=== PATIENT | female | born 1960 | race Caucasian/White ===

== ENCOUNTER → 2019-07-02 | Outpatient (CLI) | payer MEDICARE ==
--- NOTE | 2019-07-02 11:31 | US ---
LOWER EXTREMITY VENOUS INSUFFICIENCY CLINICAL HISTORY: L97.222 L89.620 E11.622. Left leg wound. No hx of DVT. SIDE PERFORMED: Bilateral 1) Color flow is present and patency is documented in the following vessels. No DVT or SVT is noted . EIV Common Femoral Vein Deep Femoral Vein Femoral Vein Popliteal Vein Proximal Calf Veins Greater Saph Vein Upper Small Saph Vein - not visualized 2) There is venous reflux noted at the following venous levels: NONE Very limited study due to patient body habitus, patient unable to position legs and patient having a hard time performing valsalva IMPRESSION: 1. No obvious reflux identified during this exam. 2. Exam is limited due to body habitus and inability to perform supplemental maneuvers.
--- NOTE | 2019-07-03 13:26 | P.ARTDOP ---
Arterial Doppler LOWER EXTREMITY ARTERIAL DOPPLER: DATE OF SERVICE: 07/02/2019 Reason for study: Left leg ulcer. Doppler waveforms: Multiphasic bilaterally throughout. Pulse volume recording: Normal configuration. Pressure gradients: None. Ankle-brachial indices: 0.94 on the right and one on the left. Toe brachial indices: 0.7 on the right, 0.84 on the left Impression: Normal study.
== END | disposition home or self-care (01) ==
LOC: RADUSWWP 09:34
PROVIDERS: ATTEND Thoracic Surgery (Cardiothoracic Vascular Surgery)
DX: E11.622 Type 2 diabetes mellitus with other skin ulcer (principal); L97.222 Non-pressure chronic ulcer of left calf with fat layer exposed; L89.620 Pressure ulcer of left heel, unstageable
CPT/HCPCS: 93923; 93970

== ENCOUNTER 2022-12-24 23:10 | Inpatient (IN) | payer MEDICARE ==
--- NOTE | 2022-12-24 23:24 | ED ---
Recheck HPI - General Chief Complaint: Wound/Laceration Stated Complaint: Wound Care Time Seen by Provider: 12/24/22 23:22 Source: EMS, RN notes reviewed, old records reviewed Mode of arrival: EMS Limitations: no limitations - History of Present Illness Initial Comments: This is a 62-year-old female to the emergency department for evaluation. Patient is accepted in transfer patient from [facility]. Patient is accepted transfer transfer for sacral decubitus ulcer, failed treatment and wound care, feeling IV antibiotics outpatient treatment MD Complaint: wound re-check, abnormal lab -: days(s) Returns Today for: Called Because of Abnormal Lab/Test, persistent/worsening pain related to initial visit Symptoms Since Prior Visit: worsening pain Context: planned re-check Treatments Prior to Arrival: Given Antibiotics on, Given Pain Meds on - Related Data Home Medications Medication Instructions Recorded Confirmed Acetaminophen [Tylenol Arthritis] 1,300 mg PO Q8H PRN 12/25/22 12/25/22 Atorvastatin [Lipitor] 20 mg PO DAILY 12/25/22 12/25/22 Cholestyramine (with Sugar) 2 gm PO DAILY 12/25/22 12/25/22 [Questran Powder] Diphenoxylate HCl/Atropine 1 tab PO QID PRN 12/25/22 12/25/22 [Lomotil 2.5-0.025 mg Tablet] Fluticasone Nasal [place] [Flonase 2 spray EA NOSTRIL DAILY PRN 12/25/22 12/25/22 Nasal [place]] Gabapentin [Neurontin] 400 mg PO DAILY 12/25/22 12/25/22 Gabapentin [Neurontin] 800 mg PO HS 12/25/22 12/25/22 Lidocaine 5% Patch [Lidoderm] 1 patch TOPICAL DAILY PRN 12/25/22 12/25/22 Metoprolol Succinate (ER) [Toprol 200 mg PO DAILY 12/25/22 12/25/22 Xl] Mirabegron [Myrbetriq] 50 mg PO DAILY 12/25/22 12/25/22 Nitroglycerin Sl Tabs [Nitrostat] 0.4 mg SUBLINGUAL Q5M PRN 12/25/22 12/25/22 Potassium Chloride ER [K-Dur 20] 20 meq PO DAILY 12/25/22 12/25/22 Warfarin [Coumadin] 5 mg PO DAILY 12/25/22 12/26/22 dilTIAZem HCL [Cardizem CD] 120 mg PO DAILY 12/25/22 12/25/22 glipiZIDE [Glucotrol] 15 mg PO BID 12/25/22 12/25/22 lisinopriL [Zestril] 2.5 mg PO DAILY 12/25/22 12/25/22 sitaGLIPtin [Januvia] 100 mg PO DAILY 12/25/22 12/25/22 Allergies Allergy/AdvReac Type Severity Reaction Status Date / Time codeine Allergy Vomiting Verified 12/25/22 12:05 Penicillins Allergy Rash/Hives Verified 12/25/22 12:05 Review of Systems ROS Statement: Those systems with pertinent positive or pertinent negative responses have been documented in the HPI. ROS Other: All systems not noted in ROS Statement are negative. Past Medical History Past Medical History: Atrial Fibrillation, Diabetes Mellitus, Hyperlipidemia, Hypertension History of Any Multi-Drug Resistant Organisms: None Reported Past Surgical History: Ablation Additional Past Surgical History / Comment(s): colonoscopy, Past Psychological History: Anxiety Smoking Status: Former smoker Past Alcohol Use History: Rare Past Drug Use History: None Reported General Exam General appearance: alert, in no apparent distress Head exam: Present: atraumatic, normocephalic, normal inspection Eye exam: Present: normal appearance, PERRL, EOMI. Absent: scleral icterus, conjunctival injection, periorbital swelling ENT exam: Present: normal exam, mucous membranes moist Neck exam: Present: normal inspection. Absent: tenderness, meningismus, lymphadenopathy Respiratory exam: Present: normal lung sounds bilaterally. Absent: respiratory distress, wheezes, rales, rhonchi, stridor Cardiovascular Exam: Present: regular rate, normal rhythm, normal heart sounds. Absent: systolic murmur, diastolic murmur, rubs, gallop, clicks GI/Abdominal exam: Present: soft, normal bowel sounds. Absent: distended, tenderness, guarding, rebound, rigid Extremities exam: Present: normal inspection, full ROM, normal capillary refill. Absent: tenderness, pedal edema, joint swelling, calf tenderness Back exam: Present: normal inspection Neurological exam: Present: alert, oriented X3, CN II-XII intact Psychiatric exam: Present: normal affect, normal mood Skin exam: Present: warm, dry, intact, normal color. Absent: rash Course Vital Signs 12/24/22 12/25/22 12/25/22 23:14 01:09 EST 01:27 EST Temperature 98.9 F Pulse Rate 116 H 111 H Respiratory 18 18 Rate Blood Pressure 115/62 102/66 O2 Sat by Pulse 96 97 Oximetry - Reevaluation(s) Reevaluation #1: 12/25/22 01:42 EDT Medical records reviewed Reevaluation #2: 12/25/22 01:42 EDT Patient symptoms are unchanged Reevaluation #3: 12/25/22 01:42 EDT Patient informed results questions answered Reevaluation #4: 12/25/22 01:42 EDT Was pt. sent in by a medical professional or institution (, SANDY, RENTAL COUNTER CLERK, urgent care, hospital, or detention...) When possible be specific @ -no Did you speak to anyone other than the patient for history (EMS, parent, family, police, friend...)? What history was obtained from this source @ -no Did you review nursing and triage notes (agree or disagree)? Why? @ -agree Are old charts reviewed (outside hosp., previous admission, EMS record, old EKG, old radiological studies, urgent care reports/EKG's, detention records)? Report findings @ -yes Differential Diagnosis (chest pain, altered mental status, abdominal pain women, abdominal pain men, vaginal bleeding, weakness, fever, dyspnea, syncope, headache, dizziness, GI bleed, back pain, seizure, CVA, palpatations, mental health, musculoskeletal)? @ -prior EKG interpreted by me (3pts min.). @ -no X-rays interpreted by me (1pt min.). @ -no CT interpreted by me (1pt min.). @ -no U/S interpreted by me (1pt. min.). @ -no What testing was considered but not performed or refused? (CT, X-rays, U/S, labs)? Why? @ -none What meds were considered but not given or refused? Why? @ -none Did you discuss the management of the patient with other professionals (professionals i.e. SANDY Gar, RENTAL COUNTER CLERK, lab, RT, psych nurse, health social work professor, credit control officer, teacher, inspectors and regulatory officers, case preparer and liner)? Give summary @ -no Was smoking cessation discussed for >3mins.? @ -no Was critical care preformed (if so, how long)? @ -no Were there social determinants of health that impacted care today? How? (Homelessness, low income, unemployed, alcoholism, drug addiction, transportatio n, low edu. Level, literacy, decrease access to med. care, correction, rehab)? @ -none Was there de-escalation of care discussed even if they declined (Discuss DNR or withdrawal of care, Hospice)? DNR status @ -no What co-morbidities impacted this encounter? (DM, HTN, Smoking, COPD, CAD, Cancer, CVA, ARF, Chemo, Hep., AIDS, mental health diagnosis, sleep apnea, morbid obesity)? @ -none Was patient admitted / discharged? Hospital course, mention meds given and route, prescriptions, significant lab abnormalities, going to OR and other pertinent info. @ - 62 female to the emergency room today for evaluation patient is presenting to the ER with pain back pain, patient is a known sacral decubitus ulcer will be admitted for wound care and IV antibiotics Admitted Undiagnosed new problem with uncertain prognosis? @ -no Drug Therapy requiring intensive monitoring for toxicity (Heparin, Nitro, Insu shaylee, Cardizem)? @ -no Were any procedures done? @ -no Diagnosis/symptom? @ -Sacral decubitus ulcer Acute, or Chronic, or Acute on Chronic? @ -Acute Uncomplicated (without systemic symptoms) or Complicated (systemic symptoms)? @ -Complicated Side effects of treatment? @ -no Exacerbation, Progression, or Severe Exacerbation? @ -exacerbation Poses a threat to life or bodily function? How? (Chest pain, [place], [place], pneumonia, PE, COPD, DKA, ARF, appy, cholecystitis, CVA, Diverticulitis, Homicidal, Suicidal, threat to staff... and all critical care pts) @ -yes significant will with sepsis - Consultations Consultation #1: Spoke with [facility] we'll admit this patient Medical Decision Making - Medical Decision Making 62 female to the emergency room today for evaluation patient is presenting to the ER with pain back pain, patient is a known sacral decubitus ulcer will be admitted for wound care and IV antibiotics - Lab Data Result diagrams: 12/27/22 11:11 12/27/22 11:11 Disposition Clinical Impression: Sacral decubitus ulcer, Weakness, Infection, Cellulitis Disposition: ADMITTED IP TO THIS HOSP Condition: Good Is patient prescribed a controlled substance at d/c from ED?: No Time of Disposition: 01:40
[2022-12-25] MEDS: SODIUM CHLORIDE 0.9% 1,000 ML IV SCH ×2 (01:18→19:32)
[2022-12-25] MEDS ORDERED: NALOXONE 0.4 MG/ML 1 ML VIAL IV PRN (01:39)
[2022-12-25] MEDS ORDERED: VANCOMYCIN IV PER PHARMACY 1 EACH MISC MISCELLANE PRN (02:17)
[2022-12-25] MEDS ORDERED: CEFEPIME 2 GM in SODIUM CHLORIDE 0.9% 100 ML IVPB STA (02:17)
[2022-12-25] MEDS: MORPHINE SULFATE 4 MG/ML SYRINGE IV PRN ×2 (02:18→20:38)
[2022-12-25] MEDS ORDERED: VANCOMYCIN 2,000 MG in SODIUM CHLORIDE 0.9% 500 ML 500 ML IVPB STA (02:19)
[2022-12-25 05:38] LABS: Glucose,Whole Blood 196 mg/dL (70-110)
[2022-12-25] MEDS ORDERED: LIDOCAINE 1% INJ 10MG/ML (20 ML MDV) SQ ONE (09:54)
[2022-12-25] MEDS ORDERED: SILVER NITRATE APPLICATOR 1 EACH STICK..EA. TOPICAL STA (10:05)
--- NOTE | 2022-12-25 10:52 | P.HPIM ---
History of Present Illness 62-year-old the female is admitted for infected decubitus ulcers stage IV 2 words the right thigh and sacrum. The patient is sent in from [facility] is bedbound not much of the information is available from the ER note. No workup was done in ER patient was started on Aricept. And vancomycin and admitted with consultation to vascular surgery I do not have any labs available patient is on Coumadin unsure why patient is on Coumadin unable to get much of the history from the patient. No history is available from ER physician either. Patient is bit hypotensive is on antidepressant medication. Patient did have fever. REVIEW OF SYSTEMS: Unable to obtain PHYSICAL EXAMINATION: GENERAL: The patient is alert , not in any acute distress. Well developed, well nourished. HEENT: Pupils are round and equally reacting to light. EOMI. No scleral icterus. No conjunctival pallor. Normocephalic, atraumatic. No pharyngeal erythema. No thyromegaly. CARDIOVASCULAR: S1 and S2 present. No murmurs, rubs, or gallops. PULMONARY: Chest is clear to auscultation, no wheezing or crackles. ABDOMEN: Soft, nontender, nondistended, normoactive bowel sounds. No palpable organomegaly. MUSCULOSKELETAL: Patient does have or deformity of the spine mostly bedbound hunched over EXTREMITIES: No cyanosis, clubbing, or pedal edema. NEUROLOGICAL: Unable to assess doesn't appear to have any new focal deficits. SKIN: No rashes. Assessment and plan -Infected sacral liquids ulcer patient did have fever may have sepsis CBC, his metabolic profile INR will be obtained patient will continue antibiotics with infectious disease consultation patient is undergoing debridement will get wound cultures. -Tachycardia secondary to sepsis and hypotension secondary to sepsis patient will be started on IV fluids -Atrial fibrillation history patient is in chronic A. fib EKG was not obtained patient will be resumed on beta judson or any other rate control medications if she is on any and EKG will be obtained no workup was done any yard. We will obtain INR -Type 2 diabetes mellitus -Hyperlipidemia -Hypertension DVT prophylaxis: Patient is on Coumadin INR is not available INR was ordered Past Medical History Past Medical History: Atrial Fibrillation, Diabetes Mellitus, Hyperlipidemia, Hypertension History of Any Multi-Drug Resistant Organisms: None Reported Past Surgical History: Ablation Additional Past Surgical History / Comment(s): colonoscopy, Past Anesthesia/Blood Transfusion Reactions: No Reported Reaction Past Psychological History: Anxiety Smoking Status: Former smoker Past Alcohol Use History: Rare Past Drug Use History: None Reported Medications and Allergies Home Medications Medication Instructions Recorded Confirmed Type Gabapentin [Neurontin] 400 mg PO 12/25/22 History Glimepiride 1.5 mg PO BID 12/25/22 12/25/22 History Oxybutynin Chloride [oxyBUTYnin 10 mg PO DAILY 12/25/22 12/25/22 History chloride ER] Tolterodine ER [Detrol LA] 4 mg PO DAILY 12/25/22 12/25/22 History Warfarin [Coumadin] 5 mg PO DAILY 12/25/22 12/25/22 History lisinopriL [Zestril] 2.5 mg PO DAILY 12/25/22 12/25/22 History traMADol HCL 50 mg PO Q6H PRN 12/25/22 12/25/22 History Allergies Allergy/AdvReac Type Severity Reaction Status Date / Time codeine Allergy Vomiting Verified 12/24/22 23:22 Penicillins Allergy Rash/Hives Verified 12/24/22 23:22 Physical Exam Vitals: Vital Signs Temp Pulse Pulse Resp BP BP Pulse Ox 12/25/22 07:04 100.4 F H 66 19 105/57 92 L 12/25/22 01:27 EST 102/66 12/25/22 01:09 EST 111 H 18 97 12/24/22 23:14 98.9 F 116 H 18 115/62 96 Intake and Output 12/24/22 12/25/22 12/25/22 23:59 06:59 14:59 Other: Voiding Method # Voids Weight Results Labs: Abnormal Lab Results - Last 24 Hours (Table) 12/25/22 Range/Units 05:36 POC Glucose (mg/dL) 196 H (70-110) mg/dL Thrombosis Risk Factor Assmnt - Choose All That Apply Any of the Below Risk Factors Present?: Yes Each Factor Represents 1 point: Age 41-60 years, Obesity (BMI >25), Swollen legs (current) Other Risk Factors: Yes Each Risk Factor Represents 2 Points: Patient confined to bed Thrombosis Risk Factor Assessment Total Risk Factor Score: 5 Thrombosis Risk Factor Assessment Level: High Risk
[2022-12-25 11:16] LABS: Basophils % (A) 0 %; Eosinophils # (A) 0.2 k/uL (0-0.7); Eosinophils % (A) 2 %; HCT 34.9 % (34.0-46.0); HGB 11.5 gm/dL (11.4-16.0); Lymphocytes # (A) 1.3 k/uL (1.0-4.8); Lymphocytes % (A) 13 %; MCH 31.7 pg (25.0-35.0); MCV 95.9 fL (80.0-100.0); Mean Platelet Volume 7.6; Monocytes # (A) 0.7 k/uL (0-1.0); Monocytes % (A) 7 %; Neutrophils # (A) 7.8 k/uL (1.3-7.7); Neutrophils % (A) 77 %; Platelet Count 346 k/uL (150-450); RBC 3.64 m/uL (3.80-5.40); RDW 12.6 % (11.5-15.5); WBC 10.1 k/uL (3.8-10.6)
[2022-12-25 11:34] LABS: INR 3.7 (<1.2)
[2022-12-25 11:36] LABS: Glucose,Whole Blood 184 mg/dL (70-110)
[2022-12-25] MEDS: INSULIN ASPART (NovoLOG) 100 UNIT/ML VIAL SQ SCH ×3 (12:41→20:38)
[2022-12-25] MEDS: CEFEPIME 2 GM in SODIUM CHLORIDE 0.9% 100 ML IVPB SCH ×2 (12:41→23:33)
[2022-12-25] MEDS: VANCOMYCIN 2,000 MG in SODIUM CHLORIDE 0.9% 500 ML 500 ML IVPB SCH ×2 (12:48→23:33)
[2022-12-25] MEDS ORDERED: NITROGLYCERIN SL TABS 0.4 MG TAB SUBLINGUAL PRN (13:54)
--- NOTE | 2022-12-25 14:01 | PCN ---
PROCEDURE NOTE PREOPERATIVE DIAGNOSIS: Sacral wound, measurement is 3 x 2 x 0.5 cm. POSTOPERATIVE DIAGNOSIS: Sacral wound, measurement is 3 x 2 x 1 cm. DESCRIPTION OF PROCEDURE: The patient was seen. The patient was kept in lateral position, prepped, and drapes were applied in sterile manner. 1% lidocaine infiltrated. This patient had a deep fertilized tissue noted. Using a knife, we excised the wound down to subcutaneous tissue and fat and the devitalized tissue was removed. The deep tissue was sent for deep culture. There was some foul order noted. The bleeding was controlled using nitroglycerin stick and then wound was irrigated with saline. MediHoney gel applied to the wound. Pressure dressing was applied. The patient tolerated the procedure well. Plan is to change the dressing every other day using MediHoney gel. MMODL / IJN: [id number] /
[2022-12-25] MEDS: METOPROLOL SUCCINATE (ER) 100 MG TAB.ER.24H PO SCH (14:18)
[2022-12-25] MEDS: DILTIAZEM CD 120 MG CAP.ER.24H PO SCH (14:18)
[2022-12-25] MEDS: LINAGLIPTIN 5 MG TABLET PO SCH (14:18)
[2022-12-25 16:34] LABS: Glucose,Whole Blood 141 mg/dL (70-110)
[2022-12-25 16:58] LABS: Glucose,Whole Blood 140 mg/dL (70-110)
[2022-12-25 20:21] LABS: Glucose,Whole Blood 209 mg/dL (70-110)
[2022-12-25] MEDS: GABAPENTIN 400 MG CAP PO SCH (20:38)
--- NOTE | 2022-12-25 21:07 | P.CONS ---
History of Present Illness - Reason for Consult Consult date: 12/25/22 Infected decubitus ulcer Requesting physician: Alma Ramires - Chief Complaint Worsening wound to the sacral area x days - History of Present Illness Patient is a 62-year-old female with a past medical history significant for diabetes mellitus hypertension hyperlipidemia atrial fibrillation patient apparently has been sent to the ER for evaluation of worsen ing wound to the sacral area the patient has for couple of weeks now patient has significant medical history so most information has been from with the chart and from nursing's staff patient presented to the hospital was afebrile however she did have fever 100.4 F this morning mildly hypertensive and hypoxic but no need for supplemental oxygen patient did have white count of 10.1 patient apparently initially was sent to the [facility] after apparently the patient did have a fall from a recliner patient apparently was complaining of some lower back pain and the patient seem to have been confused for the last couple of days as per the daughter who provide the history to the decoratively physician apparently the patient is a bedbound patient did have a sacral pressure ulcer for the patient did have a home care nurse for visit twice a week and apparently the patient has not been letting her take care of her wound there was some foul- smelling noticed patient has been eval by vascular surgery and did have debridement of the wound done deep culture has been obtained patient was started on vancomycin and cefepime infectious disease was consulted for further management of antibiotic therapy Review of Systems Positive point and negatives has been mentioned in the HPI, complete review of systems was performed and all other systems are negative Past Medical History Past Medical History: Atrial Fibrillation, Diabetes Mellitus, Hyperlipidemia, Hypertension History of Any Multi-Drug Resistant Organisms: None Reported Past Surgical History: Ablation Additional Past Surgical History / Comment(s): colonoscopy, Past Anesthesia/Blood Transfusion Reactions: No Reported Reaction Past Psychological History: Anxiety Smoking Status: Former smoker Past Alcohol Use History: Rare Past Drug Use History: None Reported Medications and Allergies Home Medications Medication Instructions Recorded Confirmed Type Acetaminophen [Tylenol Arthritis] 1,300 mg PO Q8H PRN 12/25/22 12/25/22 History Atorvastatin [Lipitor] 20 mg PO DAILY 12/25/22 12/25/22 History Diphenoxylate HCl/Atropine 1 tab PO QID PRN 12/25/22 12/25/22 History [Lomotil 2.5-0.025 mg Tablet] Fluticasone Nasal [place] [Flonase 2 spray EA NOSTRIL DAILY PRN 12/25/22 12/25/22 History Nasal [place]] Gabapentin [Neurontin] 400 mg PO DAILY 12/25/22 12/25/22 History Lidocaine 5% Patch [Lidoderm 5% 1 patch TOPICAL DAILY PRN 12/25/22 12/25/22 History Patch] Metoprolol Succinate (ER) [Toprol 200 mg PO DAILY 12/25/22 12/25/22 History XL] Mirabegron [Myrbetriq] 50 mg PO DAILY 12/25/22 12/25/22 History Nitroglycerin Sl Tabs [Nitrostat] 0.4 mg SUBLINGUAL Q5M PRN 12/25/22 12/25/22 History Warfarin [Coumadin] 5 mg PO DAILY 12/25/22 12/26/22 History dilTIAZem HCL [Cardizem CD] 120 mg PO DAILY 12/25/22 12/25/22 History glipiZIDE [Glucotrol] 15 mg PO BID 12/25/22 12/25/22 History sitaGLIPtin [Januvia] 100 mg PO DAILY 12/25/22 12/25/22 History Cefepime [Maxipime] 2 gm IVPB Q8HR 21 Days #63 each 01/02/23 Rx Gabapentin [Neurontin] 800 mg PO HS #4 cap 01/02/23 Rx HYDROcodone/APAP 5-325MG [[place] 1 each PO Q6HR PRN #4 tab 01/02/23 Rx 5-325] INSULIN ASPART (NovoLOG) [NovoLOG 0 unit SQ ACHS each 01/02/23 Rx (formulary)] Nystatin 100,000 Unit/gm Oint 1 applic TOPICAL BID each 01/02/23 Rx [Mycostatin Oint] Oxybutynin ER [Ditropan XL] 10 mg PO DAILY tab 01/02/23 Rx Pantoprazole [Protonix] 40 mg PO AC-BRKFST tab 01/02/23 Rx Triamcinolone 0.1% Ointment 1 applic TOPICAL BID each 01/02/23 Rx [Kenalog 0.1% Ointment] Vancomycin 2,250 mg IVPB Q12H 21 Days #42 each 01/02/23 Rx metroNIDAZOLE [Flagyl] 500 mg PO TID 21 Days #63 tab 01/02/23 Rx traMADol HCl [Ultram] 50 mg PO Q6H PRN #4 tab 01/02/23 Rx Allergies Allergy/AdvReac Type Severity Reaction Status Date / Time codeine Allergy Vomiting Verified 12/25/22 12:05 Penicillins Allergy Rash/Hives Verified 12/25/22 12:05 Physical Exam Vitals: Vital Signs Temp Pulse Pulse Resp BP BP Pulse Ox 12/25/22 07:04 100.4 F H 66 19 105/57 92 L 12/25/22 01:27 EST 102/66 12/25/22 01:09 EST 111 H 18 97 12/24/22 23:14 98.9 F 116 H 18 115/62 96 Intake and Output 12/24/22 12/25/22 12/25/22 23:59 06:59 14:59 Other: Voiding Method # Voids Weight GENERAL DESCRIPTION: Middle-aged female lying in bed, no distress. No tachypnea or accessory muscle of respiration use. HEENT: Shows Pallor , no scleral icterus. Oral mucous membrane is dry. No pharyngeal erythema or thrush NECK: Trachea central, no thyromegaly. LUNGS: Unlabored breathing. Clear to auscultation anteriorly. No wheeze or crackle. HEART: S1, S2, regular rate and rhythm. No loud murmur ABDOMEN: Soft, no tenderness , guarding or rigidity, no organomegaly EXTREMITIES: No edema of feet. SKIN: No rash, no masses palpable. Patient did have an unstageable sacral pressure ulcer with slough tissue and some drainage NEUROLOGICAL: The patient is awake, alert, oriented x3, mood and affect normal. Results CBC & Chem 7: 01/02/23 06:26 01/02/23 06:26 Labs: Abnormal Lab Results - Last 24 Hours (Table) 12/25/22 12/25/22 12/25/22 Range/Units 05:36 10:46 10:58 RBC 3.64 L (3.80-5.40) m/uL Neutrophils # 7.8 H (1.3-7.7) k/uL PT 36.0 H (10.0-12.5) sec INR 3.7 H (<1.2) POC Glucose (mg/dL) 196 H (70-110) mg/dL 12/25/22 Range/Units 11:34 RBC (3.80-5.40) m/uL Neutrophils # (1.3-7.7) k/uL PT (10.0-12.5) sec INR (<1.2) POC Glucose (mg/dL) 184 H (70-110) mg/dL Assessment and Plan (1) Cellulitis Current Visit: Yes Status: Acute Code(s): L03.90 - CELLULITIS, UNSPECIFIED SNOMED Code(s): 535277441 (2) Sacral decubitus ulcer Current Visit: Yes Status: Acute Code(s): L89.159 - PRESSURE ULCER OF SACRAL REGION, UNSPECIFIED STAGE SNOMED Code(s): 329391185 Plan: 1patient presented to hospital with a worsening wound to the sacral area and this patient who is status post surgical debridement and deep cultures which are currently pending bone was not palpable at the wound base, we will need to cover for gram-positive as well as gram-negative pathogen 2-penicillin allergy that will limit the number of antibiotics safe to use 3-patient to continue with vancomycin pharmacy to dose while watching kidney function closely and cefepime while waiting for the culture to finalize 4-local wound care per the wound care physician We will follow on clinical condition and cultures to further adjust medication if needed Thank you for this consultation we will follow the patient along with you Dictation was produced using [employer] dictation software. please excuse any grammatical, word or spelling errors. Time with Patient: Greater than 30
[2022-12-26] MEDS: SODIUM CHLORIDE 0.9% 1,000 ML IV SCH ×2 (04:30→19:00)
[2022-12-26 06:32] LABS: Glucose,Whole Blood 172 mg/dL (70-110)
[2022-12-26] MEDS: INSULIN ASPART (NovoLOG) 100 UNIT/ML VIAL SQ SCH ×4 (06:34→20:39)
[2022-12-26] MEDS: ATORVASTATIN 20 MG TAB PO SCH (08:24)
[2022-12-26] MEDS: DILTIAZEM CD 120 MG CAP.ER.24H PO SCH (08:24)
[2022-12-26] MEDS: OXYBUTYNIN 10 MG TAB.ER.24 PO SCH (08:24)
[2022-12-26] MEDS: LINAGLIPTIN 5 MG TABLET PO SCH (08:24)
[2022-12-26] MEDS: METOPROLOL SUCCINATE (ER) 100 MG TAB.ER.24H PO SCH (08:24)
[2022-12-26] MEDS: NON FORMULARY DRUG (Mirabegron [Myrbetriq] 50 MG Tab.Er.24h) PO SCH (08:25)
[2022-12-26 08:56] LABS: Basophils # (A) 0.1 k/uL (0-0.2); Basophils % (A) 1 %; Eosinophils # (A) 0.2 k/uL (0-0.7); Eosinophils % (A) 2 %; HCT 38.5 % (34.0-46.0); HGB 12.1 gm/dL (11.4-16.0); Hypochromasia Slight; Lymphocytes # (A) 1.2 k/uL (1.0-4.8); Lymphocytes % (A) 11 %; MCH 30.8 pg (25.0-35.0); MCHC 31.5 g/dL (31.0-37.0); MCV 97.9 fL (80.0-100.0); Mean Platelet Volume 7.3; Monocytes # (A) 0.9 k/uL (0-1.0); Monocytes % (A) 8 %; Neutrophils # (A) 8.9 k/uL (1.3-7.7); Neutrophils % (A) 77 %; Platelet Count 331 k/uL (150-450); RBC 3.93 m/uL (3.80-5.40); RDW 12.4 % (11.5-15.5); WBC 11.5 k/uL (3.8-10.6)
[2022-12-26 09:18] LABS: ALT 81 U/L (4-34); AST 137 U/L (14-36); African American GFR (CKD) >90 (>60 ml/min/1.73 sqM); Albumin 2.8 g/dL (3.5-5.0); Alkaline Phosphatase 115 U/L (38-126); Anion Gap 9 mmol/L; Blood Urea Nitrogen 16 mg/dL (7-17); Calcium 8.4 mg/dL (8.4-10.2); Carbon Dioxide 23 mmol/L (22-30); Chloride 105 mmol/L (98-107); Glucose 167 mg/dL (74-99); Magnesium 1.9 mg/dL (1.6-2.3); Non-African American GFR(CKD) >90 (>60 ml/min/1.73 sqM); Phosphorus 3.2 mg/dL (2.5-4.5); Potassium 4.4 mmol/L (3.5-5.1); Sodium 137 mmol/L (137-145); Total Bilirubin 0.9 mg/dL (0.2-1.3)
[2022-12-26 12:11] LABS: Glucose,Whole Blood 230 mg/dL (70-110)
--- NOTE | 2022-12-26 12:52 | P.GSCN ---
History of Present Illness History of present illness: 62-year-old white female I was consulted for debridement of the sacral wound. Patient is confused patient has a history of atrial fibrillation, diabetes mellitus, hypertension, patient has a sacral wound 3 x 2 x 1 cm with diverting less tissue on examination patient was seen in her room she is kind of confused history was obtained from the previous records Chest has a crackles bilateral Abdomen is soft nontender femorals are deep 1+ patient has a sacral wound on the measurement is 3 x 2 x 1 cm with some direct tissue Arrange for debridement and deep culture Past Medical History Past Medical History: Atrial Fibrillation, Diabetes Mellitus, Hyperlipidemia, Hypertension History of Any Multi-Drug Resistant Organisms: None Reported Past Surgical History: Ablation Additional Past Surgical History / Comment(s): colonoscopy, Past Anesthesia/Blood Transfusion Reactions: No Reported Reaction Past Psychological History: Anxiety Smoking Status: Former smoker Past Alcohol Use History: Rare Past Drug Use History: None Reported Medications and Allergies Home Medications Medication Instructions Recorded Confirmed Type Acetaminophen [Tylenol Arthritis] 1,300 mg PO Q8H PRN 12/25/22 12/25/22 History Atorvastatin [Lipitor] 20 mg PO DAILY 12/25/22 12/25/22 History Cholestyramine (with Sugar) 2 gm PO DAILY 12/25/22 12/25/22 History [Questran Powder] Diphenoxylate HCl/Atropine 1 tab PO QID PRN 12/25/22 12/25/22 History [Lomotil 2.5-0.025 mg Tablet] Fluticasone Nasal Page [Flonase 2 spray EA NOSTRIL DAILY PRN 12/25/22 12/25/22 History Nasal Page] Gabapentin [Neurontin] 400 mg PO DAILY 12/25/22 12/25/22 History Gabapentin [Neurontin] 800 mg PO HS 12/25/22 12/25/22 History Lidocaine 5% Patch [Lidoderm] 1 patch TOPICAL DAILY PRN 12/25/22 12/25/22 History Metoprolol Succinate (ER) [Toprol 200 mg PO DAILY 12/25/22 12/25/22 History Xl] Mirabegron [Myrbetriq] 50 mg PO DAILY 12/25/22 12/25/22 History Nitroglycerin Sl Tabs [Nitrostat] 0.4 mg SUBLINGUAL Q5M PRN 12/25/22 12/25/22 History Potassium Chloride ER [K-Dur 20] 20 meq PO DAILY 12/25/22 12/25/22 History Warfarin [Coumadin] 5 mg PO DAILY 12/25/22 12/26/22 History dilTIAZem HCL [Cardizem CD] 120 mg PO DAILY 12/25/22 12/25/22 History glipiZIDE [Glucotrol] 15 mg PO BID 12/25/22 12/25/22 History lisinopriL [Zestril] 2.5 mg PO DAILY 12/25/22 12/25/22 History sitaGLIPtin [Januvia] 100 mg PO DAILY 12/25/22 12/25/22 History Allergies Allergy/AdvReac Type Severity Reaction Status Date / Time codeine Allergy Vomiting Verified 12/25/22 12:05 Penicillins Allergy Rash/Hives Verified 12/25/22 12:05 Surgical - Exam Vital Signs Temp Pulse Resp BP Pulse Ox 98.9 F 116 H 18 115/62 96 12/24/22 23:14 12/24/22 23:14 12/24/22 23:14 12/24/22 23:14 12/24/22 23:14 Results - Labs 12/26/22 08:26 12/26/22 08:26 Abnormal Lab Results - Last 24 Hours (Table) 12/25/22 12/25/22 12/25/22 Range/Units 16:33 16:56 20:19 WBC (3.8-10.6) k/uL Neutrophils # (1.3-7.7) k/uL Creatinine (0.52-1.04) mg/dL Glucose (74-99) mg/dL POC Glucose (mg/dL) 141 H 140 H 209 H (70-110) mg/dL AST (14-36) U/L ALT (4-34) U/L Total Protein (6.3-8.2) g/dL Albumin (3.5-5.0) g/dL 12/26/22 12/26/22 12/26/22 Range/Units 06:31 08:26 08:26 WBC 11.5 H (3.8-10.6) k/uL Neutrophils # 8.9 H (1.3-7.7) k/uL Creatinine 0.42 L (0.52-1.04) mg/dL Glucose 167 H (74-99) mg/dL POC Glucose (mg/dL) 172 H (70-110) mg/dL AST 137 H (14-36) U/L ALT 81 H (4-34) U/L Total Protein 6.0 L (6.3-8.2) g/dL Albumin 2.8 L (3.5-5.0) g/dL 12/26/22 Range/Units 12:09 WBC (3.8-10.6) k/uL Neutrophils # (1.3-7.7) k/uL Creatinine (0.52-1.04) mg/dL Glucose (74-99) mg/dL POC Glucose (mg/dL) 230 H (70-110) mg/dL AST (14-36) U/L ALT (4-34) U/L Total Protein (6.3-8.2) g/dL Albumin (3.5-5.0) g/dL Microbiology - Last 24 Hours (Table) 12/25/22 11:00 Gram Stain - Preliminary Coccyx Diabetes panel 12/26/22 Range/Units 08:26 Sodium 137 (137-145) mmol/L Potassium 4.4 (3.5-5.1) mmol/L Chloride 105 (98-107) mmol/L Carbon Dioxide 23 (22-30) mmol/L BUN 16 (7-17) mg/dL Creatinine 0.42 L (0.52-1.04) mg/dL Glucose 167 H (74-99) mg/dL Calcium 8.4 (8.4-10.2) mg/dL AST 137 H (14-36) U/L ALT 81 H (4-34) U/L Alkaline Phosphatase 115 (38-126) U/L Total Protein 6.0 L (6.3-8.2) g/dL Albumin 2.8 L (3.5-5.0) g/dL Calcium panel 12/26/22 Range/Units 08:26 Calcium 8.4 (8.4-10.2) mg/dL Phosphorus 3.2 (2.5-4.5) mg/dL Albumin 2.8 L (3.5-5.0) g/dL Pituitary panel 12/26/22 Range/Units 08:26 Sodium 137 (137-145) mmol/L Potassium 4.4 (3.5-5.1) mmol/L Chloride 105 (98-107) mmol/L Carbon Dioxide 23 (22-30) mmol/L BUN 16 (7-17) mg/dL Creatinine 0.42 L (0.52-1.04) mg/dL Glucose 167 H (74-99) mg/dL Calcium 8.4 (8.4-10.2) mg/dL Adrenal panel 12/26/22 Range/Units 08:26 Sodium 137 (137-145) mmol/L Potassium 4.4 (3.5-5.1) mmol/L Chloride 105 (98-107) mmol/L Carbon Dioxide 23 (22-30) mmol/L BUN 16 (7-17) mg/dL Creatinine 0.42 L (0.52-1.04) mg/dL Glucose 167 H (74-99) mg/dL Calcium 8.4 (8.4-10.2) mg/dL Total Bilirubin 0.9 (0.2-1.3) mg/dL AST 137 H (14-36) U/L ALT 81 H (4-34) U/L Alkaline Phosphatase 115 (38-126) U/L Total Protein 6.0 L (6.3-8.2) g/dL Albumin 2.8 L (3.5-5.0) g/dL
[2022-12-26] MEDS: CEFEPIME 2 GM in SODIUM CHLORIDE 0.9% 100 ML IVPB SCH ×2 (13:00→23:50)
[2022-12-26] MEDS: traMADol 50 MG TAB PO PRN ×2 (13:22→20:40)
[2022-12-26] MEDS: VANCOMYCIN 2,000 MG in SODIUM CHLORIDE 0.9% 500 ML 500 ML IVPB SCH ×2 (13:23→23:50)
[2022-12-26] MEDS: FLUTICASONE 50MCG/SPRAY NASAL 16GM EA NOSTRIL PRN (13:24)
[2022-12-26 16:03] VITALS: BMI 46.5
[2022-12-26 16:41] LABS: Glucose,Whole Blood 196 mg/dL (70-110)
--- NOTE | 2022-12-26 17:18 | P.PN ---
Subjective Progress Note Date: 12/26/22 62-year-old the female is admitted for infected decubitus ulcers stage IV 2 words the right thigh and sacrum. The patient is sent in from [facility] is bedbound not much of the information is available from the ER note. No workup was done in ER patient was started on Aricept. And vancomycin and admitted with consultation to vascular surgery I do not have any labs available patient is on Coumadin unsure why patient is on Coumadin unable to get much of the history from the patient. No history is available from ER physician either. Patient is bit hypotensive is on antidepressant medication. Patient did have fever. 12/26/2022 Patient evaluated today with family at the bedside. Family states they have not been to visit her since due to life constraints having children etc. Patient has been home alone and caring for herself. States she is unable to make it to the bathroom most of time time. Patient is continued on antibiotics for the decubitus ulceration and cultures are showing Group D enterococcus. Complaining of excoriation in her groin and abdominal folds. AST/ALT elevated. Review of Systems Constitutional: Denied any fatigue denied any fever. Cardio vascular: denied any chest pain, palpitations Gastrointestinal: denied any nausea, vomiting, diarrhea Pulmonary: Denied any shortness of breath cough Neurologic denied any new focal deficits All inpatient medications were reviewed and appropriate changes in these medications as dictated in the interval history and assessment and plan. PHYSICAL EXAMINATION: GENERAL: The patient is alert , not in any acute distress. Well developed, well nourished. HEENT: Pupils are round and equally reacting to light. EOMI. No scleral icterus. No conjunctival pallor. Normocephalic, atraumatic. No pharyngeal erythema. No thyromegaly. CARDIOVASCULAR: S1 and S2 present. No murmurs, rubs, or gallops. PULMONARY: Chest is clear to auscultation, no wheezing or crackles. ABDOMEN: Soft, nontender, nondistended, normoactive bowel sounds. No palpable organomegaly. MUSCULOSKELETAL: Patient does have or deformity of the spine mostly bedbound hunched over EXTREMITIES: No cyanosis, clubbing, or pedal edema. NEUROLOGICAL: Unable to assess doesn't appear to have any new focal deficits. SKIN: No rashes. Sacral ulceration, chronic skin changes bilateral lower extremity. Assessment and plan -Infected sacral decubitus ulcer patient did have fever may have sepsis, status post sugical debridement of wound continues on IV Cefepime and IV vancomycin with ID and vascular consultation. -Intertrigo in the groin folds mycostatin cream ordered -Tachycardia secondary to sepsis and hypotension secondary to sepsis, improving with IV fluids. -Atrial fibrillation history patient is in chronic A. fib anticoaguated with warfarin. -Type 2 diabetes mellitus -Hyperlipidemia -Hypertension -Anxiety -Former Smoker DVT prophylaxis: Patient is on Coumadin resumed post debridement GI prophylaxis: protonix Full Code Plan PT.OT consultation and social work. APS referral has been placed. Continue on antibiotics pending final cultures from debridement. The impression and plan of care has been dictated by Karrie Shaikh, Nurse Practitioner as directed. Dr. Keyla MD I have performed a history and physical examination and medical decision making of this patient, discussed the same with the dictator, and agree with the dic tators assessment and plan as written, documented as a scribe. Based on total visit time, I have performed more than 50% of this visit. Objective - Vital Signs Vital signs: Vital Signs Temp 98.8 F 12/26/22 13:00 Pulse 91 12/26/22 13:00 Resp 16 12/26/22 13:00 BP 95/59 12/26/22 13:00 Pulse Ox 92 L 12/26/22 13:00 FiO2 Intake & Output 12/25/22 12/26/22 12/26/22 18:59 06:59 18:59 Output Total 1050 Balance -1050 Weight 127.006 kg Output: Urine 1050 Other: Voiding Method Indwelling Catheter Indwelling Catheter Indwelling Catheter - Labs CBC & Chem 7: 12/26/22 08:26 12/26/22 08:26 Labs: Abnormal Lab Results - Last 24 Hours (Table) 12/25/22 12/25/22 12/26/22 Range/Units 16:56 20:19 06:31 WBC (3.8-10.6) k/uL Neutrophils # (1.3-7.7) k/uL Creatinine (0.52-1.04) mg/dL Glucose (74-99) mg/dL POC Glucose (mg/dL) 140 H 209 H 172 H (70-110) mg/dL AST (14-36) U/L ALT (4-34) U/L Total Protein (6.3-8.2) g/dL Albumin (3.5-5.0) g/dL 12/26/22 12/26/22 12/26/22 Range/Units 08:26 08:26 12:09 WBC 11.5 H (3.8-10.6) k/uL Neutrophils # 8.9 H (1.3-7.7) k/uL Creatinine 0.42 L (0.52-1.04) mg/dL Glucose 167 H (74-99) mg/dL POC Glucose (mg/dL) 230 H (70-110) mg/dL AST 137 H (14-36) U/L ALT 81 H (4-34) U/L Total Protein 6.0 L (6.3-8.2) g/dL Albumin 2.8 L (3.5-5.0) g/dL 12/26/22 Range/Units 16:39 WBC (3.8-10.6) k/uL Neutrophils # (1.3-7.7) k/uL Creatinine (0.52-1.04) mg/dL Glucose (74-99) mg/dL POC Glucose (mg/dL) 196 H (70-110) mg/dL AST (14-36) U/L ALT (4-34) U/L Total Protein (6.3-8.2) g/dL Albumin (3.5-5.0) g/dL Microbiology - Last 24 Hours (Table) 12/25/22 11:00 Gram Stain - Preliminary Coccyx Tissue Culture - Preliminary Group D Enterococcus Assessment and Plan Time with Patient: Less than 30
[2022-12-26] MEDS ORDERED: WARFARIN 0.5 MG TAB PO ONE (18:00)
[2022-12-26 20:18] LABS: Glucose,Whole Blood 200 mg/dL (70-110)
[2022-12-26] MEDS: GABAPENTIN 400 MG CAP PO SCH (20:42)
[2022-12-26] MEDS: NYSTATIN 100,000 UNIT/GM OINT 30 GM TUBE TOPICAL SCH (20:49)
[2022-12-26] MEDS: TRIAMCINOLONE ACET 0.1% OINTMENT 15 GM TUBE TOPICAL SCH (20:49)
[2022-12-26] MEDS ORDERED: NYSTAT-TRIAMCIN 100,000-0.1 UNIT/GM-% OINT 30 GM TUBE TOPICAL SCH (21:00)
[2022-12-27 06:14] LABS: Glucose,Whole Blood 124 mg/dL (70-110)
[2022-12-27] MEDS: INSULIN ASPART (NovoLOG) 100 UNIT/ML VIAL SQ SCH ×4 (06:19→21:07)
[2022-12-27] MEDS: PANTOPRAZOLE 40 MG TABLET PO SCH (06:33)
[2022-12-27] MEDS: SODIUM CHLORIDE 0.9% 1,000 ML IV SCH (06:34)
[2022-12-27] MEDS: traMADol 50 MG TAB PO PRN ×3 (06:40→23:19)
[2022-12-27] MEDS: METOPROLOL SUCCINATE (ER) 100 MG TAB.ER.24H PO SCH (08:53)
[2022-12-27] MEDS: ATORVASTATIN 20 MG TAB PO SCH (08:53)
[2022-12-27] MEDS: DILTIAZEM CD 120 MG CAP.ER.24H PO SCH (08:53)
[2022-12-27] MEDS: LINAGLIPTIN 5 MG TABLET PO SCH (08:54)
[2022-12-27] MEDS: OXYBUTYNIN 10 MG TAB.ER.24 PO SCH (08:54)
[2022-12-27] MEDS: NON FORMULARY DRUG (Mirabegron [Myrbetriq] 50 MG Tab.Er.24h) PO SCH (09:30)
[2022-12-27 10:19] LABS: Prothrombin Time 20.2 sec (10.0-12.5)
--- NOTE | 2022-12-27 10:29 | P.PN ---
Subjective Progress Note Date: 12/26/22 Principal diagnosis: Infected sacral pressure ulcer Patient is a 62-year-old female with a past medical history significant for diabetes mellitus hypertension hyperlipidemia atrial fibrillation patient apparently has been sent to the ER for evaluation of worsening wound to the sacral area, patient did have a low-grade fever 100.4 and did have debridement of the wound by surgery and cultures are pending. On today's evaluation that is 12/26/2022, the patient did have a low-grade fever 100.2F this morning, the patient is breathing comfortably on room air , the patient denies any chest pain or cough and no sputum production, patient denies nausea/vomiting or diarrhea , no abdominal pain, denies any worsening pain to the sacral area. White count is 11.5, creatinine 0.42, cultures are currently pending Objective - Vital Signs Vital signs: Vital Signs Temp 100.2 F H 12/26/22 08:20 Pulse 95 12/26/22 08:20 Resp 18 12/26/22 08:20 BP 99/63 12/26/22 08:20 Pulse Ox 93 L 12/26/22 08:20 FiO2 Intake & Output 12/25/22 12/26/22 12/26/22 18:59 06:59 18:59 Output Total 1050 Balance -1050 Output: Urine 1050 Other: Voiding Method Indwelling Catheter Indwelling Catheter - Exam GENERAL DESCRIPTION: A middle-aged female lying in bed in no distress RESPIRATORY SYSTEM: Unlabored breathing , clear to auscultation anteriorly HEART: S1 S2 regular rate and rhythm , ABDOMEN: Soft , no tenderness EXTREMITIES: No edema feet - Labs CBC & Chem 7: 12/26/22 08:26 12/26/22 08:26 Labs: Abnormal Lab Results - Last 24 Hours (Table) 12/25/22 12/25/22 12/25/22 Range/Units 10:46 10:58 11:34 WBC (3.8-10.6) k/uL RBC 3.64 L (3.80-5.40) m/uL Neutrophils # 7.8 H (1.3-7.7) k/uL PT 36.0 H (10.0-12.5) sec INR 3.7 H (<1.2) Creatinine (0.52-1.04) mg/dL Glucose (74-99) mg/dL POC Glucose (mg/dL) 184 H (70-110) mg/dL AST (14-36) U/L ALT (4-34) U/L Total Protein (6.3-8.2) g/dL Albumin (3.5-5.0) g/dL 12/25/22 12/25/22 12/25/22 Range/Units 16:33 16:56 20:19 WBC (3.8-10.6) k/uL RBC (3.80-5.40) m/uL Neutrophils # (1.3-7.7) k/uL PT (10.0-12.5) sec INR (<1.2) Creatinine (0.52-1.04) mg/dL Glucose (74-99) mg/dL POC Glucose (mg/dL) 141 H 140 H 209 H (70-110) mg/dL AST (14-36) U/L ALT (4-34) U/L Total Protein (6.3-8.2) g/dL Albumin (3.5-5.0) g/dL 12/26/22 12/26/22 12/26/22 Range/Units 06:31 08:26 08:26 WBC 11.5 H (3.8-10.6) k/uL RBC (3.80-5.40) m/uL Neutrophils # 8.9 H (1.3-7.7) k/uL PT (10.0-12.5) sec INR (<1.2) Creatinine 0.42 L (0.52-1.04) mg/dL Glucose 167 H (74-99) mg/dL POC Glucose (mg/dL) 172 H (70-110) mg/dL AST 137 H (14-36) U/L ALT 81 H (4-34) U/L Total Protein 6.0 L (6.3-8.2) g/dL Albumin 2.8 L (3.5-5.0) g/dL Microbiology - Last 24 Hours (Table) 12/25/22 11:00 Gram Stain - Preliminary Coccyx Assessment and Plan (1) Infection Current Visit: Yes Status: Acute Code(s): B99.9 - UNSPECIFIED INFECTIOUS DISEASE SNOMED Code(s): 75569665 (2) Sacral decubitus ulcer Current Visit: Yes Status: Acute Code(s): L89.159 - PRESSURE ULCER OF SACRAL REGION, UNSPECIFIED STAGE SNOMED Code(s): 404001304 Plan: 1patient presented to hospital with a worsening wound to the sacral area and this patient who is status post surgical debridement and deep cultures which are currently pending bone was not palpable at the wound base, we will need to cover for gram-positive as well as gram-negative pathogen 2-penicillin allergy that will limit the number of antibiotics safe to use 3-patient to continue with vancomycin pharmacy to dose while watching kidney function closely and cefepime while waiting for the culture to finalize and monitor clinical course closely Dictation was produced using J[employer] dictation software. please excuse any g rammatical, word or spelling errors. Time with Patient: Less than 30
[2022-12-27] MEDS ORDERED: VANCOMYCIN TROUGH DUE 1 EACH MISC MISCELLANE ONE (11:00)
[2022-12-27 11:12] LABS: Glucose,Whole Blood 195 mg/dL (70-110)
[2022-12-27 12:10] LABS: African American GFR (CKD) >90 (>60 ml/min/1.73 sqM); Anion Gap 6 mmol/L; Basophils % (A) 0 %; Blood Urea Nitrogen 12 mg/dL (7-17); Calcium 7.8 mg/dL (8.4-10.2); Carbon Dioxide 25 mmol/L (22-30); Chloride 103 mmol/L (98-107); Eosinophils # (A) 0.4 k/uL (0-0.7); Eosinophils % (A) 4 %; Glucose 179 mg/dL (74-99); HGB 10.2 gm/dL (11.4-16.0); Lymphocytes # (A) 1.4 k/uL (1.0-4.8); Lymphocytes % (A) 15 %; MCH 31.2 pg (25.0-35.0); MCHC 31.8 g/dL (31.0-37.0); Magnesium 1.9 mg/dL (1.6-2.3); Mean Platelet Volume 8.1; Monocytes # (A) 0.8 k/uL (0-1.0); Monocytes % (A) 8 %; Neutrophils # (A) 6.8 k/uL (1.3-7.7); Neutrophils % (A) 70 %; Non-African American GFR(CKD) >90 (>60 ml/min/1.73 sqM); Platelet Count 261 k/uL (150-450); Potassium 4.2 mmol/L (3.5-5.1); RBC 3.26 m/uL (3.80-5.40); RDW 12.8 % (11.5-15.5); Sodium 134 mmol/L (137-145); WBC 9.8 k/uL (3.8-10.6)
[2022-12-27] MEDS: CEFEPIME 2 GM in SODIUM CHLORIDE 0.9% 100 ML IVPB SCH ×2 (12:28→23:19)
[2022-12-27] MEDS: VANCOMYCIN 2,000 MG in SODIUM CHLORIDE 0.9% 500 ML 500 ML IVPB SCH ×2 (12:28→23:19)
[2022-12-27] MEDS: NYSTATIN 100,000 UNIT/GM OINT 30 GM TUBE TOPICAL SCH ×2 (12:29→20:52)
[2022-12-27] MEDS: TRIAMCINOLONE ACET 0.1% OINTMENT 15 GM TUBE TOPICAL SCH ×2 (12:29→20:52)
--- NOTE | 2022-12-27 14:32 | P.PN ---
Subjective Progress Note Date: 12/27/22 Principal diagnosis: Infected sacral pressure ulcer Patient is a 62-year-old female with a past medical history significant for diabetes mellitus hypertension hyperlipidemia atrial fibrillation patient apparently has been sent to the ER for evaluation of worsening wound to the sacral area, patient did have a low-grade fever 100.4 and did have debridement of the wound by surgery and cultures are pending. On today's evaluation that is 12/27/2022, the patient continues to be afebrile, the patient is breathing comfortably on room air and no need for supplemental oxygen, the patient denies any chest pain or cough , patient denies nausea/vomiting or diarrhea , no abdominal pain, the patient pain to the sacral area has decreased in intensity. White count normalized to 9.8, creatinine 0.38 culture growing group D enterococcus Objective - Vital Signs Vital signs: Vital Signs Temp 99.6 F 12/27/22 03:35 Pulse 87 12/27/22 08:00 Resp 18 12/27/22 08:00 BP 92/57 12/27/22 03:35 Pulse Ox 92 L 12/27/22 03:35 FiO2 Intake & Output 12/26/22 12/27/22 12/27/22 18:59 06:59 18:59 Intake Total 1558 110 Output Total 480 500 Balance 1078 -500 110 Weight 127.006 kg Intake: Intake, IV Titration 600 Amount Cefepime 2 gm In Sodium 100 Chloride 0.9% 100 ml @ 25 mls/hr IVPB Q12H [facility] Rx# :[id number] Vancomycin 2,000 mg In 500 Sodium Chloride 0.9% 500 ml 500 ml @ 167 mls/hr IVPB Q12H [facility] Rx#: [id number] Oral 958 110 Output: Urine 480 500 Uretheral (Tobias) 150 Other: Voiding Method Indwelling Catheter Indwelling Catheter Indwelling Catheter - Exam GENERAL DESCRIPTION: A middle-aged female lying in bed in no distress RESPIRATORY SYSTEM: Unlabored breathing , clear to auscultation anteriorly HEART: S1 S2 regular rate and rhythm , ABDOMEN: Soft , no tenderness EXTREMITIES: No edema feet - Labs CBC & Chem 7: 12/27/22 11:11 12/27/22 11:11 Labs: Abnormal Lab Results - Last 24 Hours (Table) 12/26/22 12/26/22 12/26/22 Range/Units 12:09 16:39 20:17 PT (10.0-12.5) sec INR (<1.2) POC Glucose (mg/dL) 230 H 196 H 200 H (70-110) mg/dL 12/27/22 12/27/22 Range/Units 06:13 09:44 PT 20.2 H (10.0-12.5) sec INR 2.0 H (<1.2) POC Glucose (mg/dL) 124 H (70-110) mg/dL Microbiology - Last 24 Hours (Table) 12/25/22 11:00 Gram Stain - Preliminary Coccyx Tissue Culture - Preliminary Group D Enterococcus Assessment and Plan (1) Infection Current Visit: Yes Status: Acute Code(s): B99.9 - UNSPECIFIED INFECTIOUS DISEASE SNOMED Code(s): 96342848 (2) Sacral decubitus ulcer Current Visit: Yes Status: Acute Code(s): L89.159 - PRESSURE ULCER OF SACRAL REGION, UNSPECIFIED STAGE SNOMED Code(s): 076358367 Plan: 1patient presented to hospital with a worsening wound to the sacral area and this patient who is status post surgical debridement and deep cultures which are currently pending bone was not palpable at the wound base, we will need to cover for gram-positive as well as gram-negative pathogen 2-penicillin allergy that will limit the number of antibiotics safe to use 3-patient did have some clinical improvement and will continue with vancomycin pharmacy to dose while watching kidney function closely and cefepime while waiting for the culture to finalize and monitor clinical course closely Dictation was produced using [employer] dictation software. please excuse any grammatical, word or spelling errors. Time with Patient: Less than 30
[2022-12-27 16:37] LABS: Glucose,Whole Blood 228 mg/dL (70-110)
[2022-12-27] MEDS ORDERED: WARFARIN 5 MG TAB PO ONE (18:00)
[2022-12-27] MEDS: GABAPENTIN 400 MG CAP PO SCH (20:42)
[2022-12-27] MEDS: ACETAMINOPHEN TAB 500 MG TAB PO PRN (20:48)
[2022-12-27 21:17] LABS: Glucose,Whole Blood 206 mg/dL (70-110)
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
[2022-12-28 06:04] LABS: Glucose,Whole Blood 129 mg/dL (70-110)
[2022-12-28] MEDS: INSULIN ASPART (NovoLOG) 100 UNIT/ML VIAL SQ SCH ×4 (06:08→20:25)
[2022-12-28] MEDS: PANTOPRAZOLE 40 MG TABLET PO SCH (06:23)
[2022-12-28] MEDS: traMADol 50 MG TAB PO PRN (08:26)
[2022-12-28] MEDS: METOPROLOL SUCCINATE (ER) 100 MG TAB.ER.24H PO SCH (08:26)
[2022-12-28] MEDS: ATORVASTATIN 20 MG TAB PO SCH (08:29)
[2022-12-28] MEDS: LINAGLIPTIN 5 MG TABLET PO SCH (08:29)
[2022-12-28] MEDS: DILTIAZEM CD 120 MG CAP.ER.24H PO SCH (08:29)
[2022-12-28] MEDS: OXYBUTYNIN 10 MG TAB.ER.24 PO SCH (08:30)
[2022-12-28] MEDS: NYSTATIN 100,000 UNIT/GM OINT 30 GM TUBE TOPICAL SCH ×2 (08:31→20:26)
[2022-12-28] MEDS: TRIAMCINOLONE ACET 0.1% OINTMENT 15 GM TUBE TOPICAL SCH ×2 (08:31→20:26)
[2022-12-28] MEDS: FLUTICASONE 50MCG/SPRAY NASAL 16GM EA NOSTRIL PRN (11:00)
[2022-12-28] MEDS ORDERED: LACTULOSE 20 GM/30 ML CUP PO ONE (11:12)
[2022-12-28 11:18] LABS: INR 1.5 (<1.2); Prothrombin Time 15.5 sec (10.0-12.5)
[2022-12-28 11:24] LABS: African American GFR (CKD) >90 (>60 ml/min/1.73 sqM); Anion Gap 6 mmol/L; Blood Urea Nitrogen 12 mg/dL (7-17); Calcium 7.9 mg/dL (8.4-10.2); Carbon Dioxide 26 mmol/L (22-30); Chloride 102 mmol/L (98-107); Glucose 180 mg/dL (74-99); Non-African American GFR(CKD) >90 (>60 ml/min/1.73 sqM); Potassium 4.4 mmol/L (3.5-5.1); Sodium 134 mmol/L (137-145)
[2022-12-28 11:30] LABS: Glucose,Whole Blood 194 mg/dL (70-110)
[2022-12-28] MEDS: ACETAMINOPHEN TAB 500 MG TAB PO PRN (12:18)
[2022-12-28] MEDS: VANCOMYCIN 2,000 MG in SODIUM CHLORIDE 0.9% 500 ML 500 ML IVPB SCH (12:18)
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
[2022-12-28 16:41] LABS: Glucose,Whole Blood 155 mg/dL (70-110)
[2022-12-28] MEDS: HYDROcodone/APAP 5-325MG 1 EACH TAB PO PRN (17:03)
[2022-12-28] MEDS ORDERED: WARFARIN 5 MG TAB PO ONE (18:00)
[2022-12-28 20:18] LABS: Glucose,Whole Blood 190 mg/dL (70-110)
[2022-12-28] MEDS: GABAPENTIN 400 MG CAP PO SCH (20:26)
[2022-12-29] MEDS: VANCOMYCIN 2,000 MG in SODIUM CHLORIDE 0.9% 500 ML 500 ML IVPB SCH ×2 (01:01→14:09)
[2022-12-29] MEDS: ACETAMINOPHEN TAB 500 MG TAB PO PRN ×2 (04:25→11:46)
[2022-12-29] MEDS: NON FORMULARY DRUG (Mirabegron [Myrbetriq] 50 MG Tab.Er.24h) PO SCH (05:36)
[2022-12-29 06:14] LABS: Glucose,Whole Blood 148 mg/dL (70-110)
[2022-12-29] MEDS: PANTOPRAZOLE 40 MG TABLET PO SCH (07:00)
[2022-12-29] MEDS: INSULIN ASPART (NovoLOG) 100 UNIT/ML VIAL SQ SCH ×4 (09:25→21:17)
[2022-12-29 09:26] LABS: INR 1.5 (<1.2); Prothrombin Time 15.1 sec (10.0-12.5)
[2022-12-29] MEDS: NYSTATIN 100,000 UNIT/GM OINT 30 GM TUBE TOPICAL SCH ×2 (09:33→21:18)
[2022-12-29] MEDS: LINAGLIPTIN 5 MG TABLET PO SCH (09:33)
[2022-12-29] MEDS: ATORVASTATIN 20 MG TAB PO SCH (09:33)
[2022-12-29] MEDS: HYDROcodone/APAP 5-325MG 1 EACH TAB PO PRN ×2 (09:33→16:43)
[2022-12-29] MEDS: METOPROLOL SUCCINATE (ER) 100 MG TAB.ER.24H PO SCH (09:33)
[2022-12-29] MEDS: DILTIAZEM CD 120 MG CAP.ER.24H PO SCH (09:33)
[2022-12-29] MEDS: TRIAMCINOLONE ACET 0.1% OINTMENT 15 GM TUBE TOPICAL SCH ×2 (09:34→21:18)
[2022-12-29] MEDS: OXYBUTYNIN 10 MG TAB.ER.24 PO SCH (09:35)
[2022-12-29 09:55] LABS: African American GFR (CKD) >90 (>60 ml/min/1.73 sqM); Non-African American GFR(CKD) >90 (>60 ml/min/1.73 sqM)
[2022-12-29] MEDS ORDERED: LIDOCAINE 1% INJ 10MG/ML (20 ML MDV) ONE (11:02)
[2022-12-29] MEDS ORDERED: LIDOCAINE 1% INJ 10MG/ML (20 ML MDV) SQ ONE (11:06)
[2022-12-29] MEDS: CEFEPIME 2 GM in SODIUM CHLORIDE 0.9% 100 ML IVPB SCH ×2 (11:46→16:43)
[2022-12-29 11:49] LABS: Glucose,Whole Blood 156 mg/dL (70-110)
--- NOTE | 2022-12-29 12:52 | IR ---
PICC LINE PLACEMENT: HISTORY: Infection requiring long-term antibiotic therapy PROCEDURE: Ultrasound and fluoroscopic guidance of PICC line placement. COMPLICATIONS: None ANESTHESIA: 1. 1% Lidocaine locally. FINDINGS/TECHNIQUE: The procedure was explained to the patient. The risks, complications, benefits and alternatives were discussed and any questions were answered. Informed consent was obtained. The patient was placed supine on the fluoroscopic table and prepped and draped in the usual sterile fash ion. Utilizing a 21 gauge needle and sonographic and fluoroscopic guidance, access in the left basi lic vein was achieved and there is placement of a 0.018 guidewire. The vein is patent. A 4-F sheath was placed over the guidewire. The guidewire and dilator were removed and a 4-F. PICC line was plac ed through the sheath with the tip at the level of the SVC. The sheath was removed, the catheter was flushed and sutured into position. The patient was stable throughout the procedure and remained sta ble upon discharge from the Department of Radiology. The vein puncture was patent under ultrasound. A pat scale image was obtained to document patency of the vein punctured. All elements of the maximal barrier technique were utilized. FLUOROSCOPY TIME: DAP 0.128Gy cm2 IMPRESSION: Successful PICC line placement under ultrasound and fluoroscopic guidance.
--- NOTE | 2022-12-29 13:01 | P.PN ---
Subjective Progress Note Date: 12/28/22 Principal diagnosis: Infected sacral pressure ulcer Patient is a 62-year-old female with a past medical history significant for diabetes mellitus hypertension hyperlipidemia atrial fibrillation patient apparently has been sent to the ER for evaluation of worsening wound to the sacral area, patient did have a low-grade fever 100.4 and did have debridement of the wound by surgery and cultures are pending. On today's evaluation that is 12/28/2022, the patient remains to be afebrile, the patient is breathing comfortably on room air and denies any shortness of breath, the patient denies any chest pain or cough , patient denies abdominal pain and no nausea/vomiting or diarrhea , the patient denies any worsening pain to the sacral area White count normalized to 9.8 as of 12/27/2022, creatinine is 0.41 culture growing group D enterococcus Objective - Vital Signs Vital signs: Vital Signs Temp 97.1 F L 12/28/22 08:00 Pulse 88 12/28/22 08:00 Resp 18 12/28/22 08:00 BP 108/57 12/28/22 08:00 Pulse Ox 95 12/28/22 08:00 FiO2 Intake & Output 12/27/22 12/28/22 12/28/22 18:59 06:59 18:59 Intake Total 460 10 200 Output Total 630 800 Balance -170 -790 200 Intake: IV 10 0.9 10 Oral 460 200 Output: Urine 630 800 Other: Voiding Method Indwelling Catheter Indwelling Catheter - Exam GENERAL DESCRIPTION: A middle-aged female lying in bed in no distress RESPIRATORY SYSTEM: Unlabored breathing , clear to auscultation anteriorly HEART: S1 S2 regular rate and rhythm , ABDOMEN: Soft , no tenderness EXTREMITIES: No edema feet - Labs CBC & Chem 7: 12/27/22 11:11 12/29/22 07:44 Labs: Abnormal Lab Results - Last 24 Hours (Table) 12/27/22 12/27/22 12/27/22 Range/Units 11:11 11:11 11:11 RBC 3.26 L (3.80-5.40) m/uL Hgb 10.2 L (11.4-16.0) gm/dL Hct 32.0 L (34.0-46.0) % Sodium 134 L (137-145) mmol/L Creatinine 0.38 L (0.52-1.04) mg/dL Glucose 179 H (74-99) mg/dL POC Glucose (mg/dL) 195 H (70-110) mg/dL Calcium 7.8 L (8.4-10.2) mg/dL 12/27/22 12/27/22 12/28/22 Range/Units 16:34 21:04 06:01 RBC (3.80-5.40) m/uL Hgb (11.4-16.0) gm/dL Hct (34.0-46.0) % Sodium (137-145) mmol/L Creatinine (0.52-1.04) mg/dL Glucose (74-99) mg/dL POC Glucose (mg/dL) 228 H 206 H 129 H (70-110) mg/dL Calcium (8.4-10.2) mg/dL Microbiology - Last 24 Hours (Table) 12/25/22 11:00 Gram Stain - Preliminary Coccyx Tissue Culture - Preliminary Enterococcus faecalis Assessment and Plan (1) Infection Current Visit: Yes Status: Acute Code(s): B99.9 - UNSPECIFIED INFECTIOUS DISEASE SNOMED Code(s): 37699982 (2) Sacral decubitus ulcer Current Visit: Yes Status: Acute Code(s): L89.159 - PRESSURE ULCER OF SACRAL REGION, UNSPECIFIED STAGE SNOMED Code(s): 734922356 Plan: 1patient presented to hospital with a worsening wound to the sacral area and this patient who is status post surgical debridement and deep cultures which are currently pending bone was not palpable at the wound base, we will need to cover for gram-positive as well as gram-negative pathogen 2-penicillin allergy with a rash a few years ago that will limit the number of antibiotics safe to use 3-patient did have some clinical improvement , her local cultures currently growing group D enterococcus he will continue with the vancomycin and discontinue cefepime Family the bedside and multiple questions Answered Dictation was produced using [employer] dictation software. please excuse any grammatical, word or spelling errors. Time with Patient: Less than 30
--- NOTE | 2022-12-29 13:02 | P.PN ---
Subjective Progress Note Date: 12/29/22 Principal diagnosis: Infected sacral pressure ulcer Patient is a 62-year-old female with a past medical history significant for diabetes mellitus hypertension hyperlipidemia atrial fibrillation patient apparently has been sent to the ER for evaluation of worsening wound to the sacral area, patient did have a low-grade fever 100.4 and did have debridement of the wound by surgery and cultures are pending. On today's evaluation that is 12/29/2022, the patient denies any fever or any chills, the patient is breathing comfortably on room air and no need for supplemental oxygen, the patient denies any chest pain, cough or sputum production, patient denies abdominal pain and no nausea/vomiting and no diarrhea has been reported, the patient denies any worsening pain to the sacral area White count normalized to 9.8 as of 12/27/2022, creatinine is 0.46 culture growing group D enterococcus as well as gram-negative bacilli Objective - Vital Signs Vital signs: Vital Signs Temp 97.6 F 12/29/22 04:00 Pulse 90 12/29/22 04:00 Resp 17 12/29/22 04:00 BP 112/53 12/29/22 04:00 Pulse Ox 93 L 12/29/22 04:00 FiO2 Intake & Output 12/28/22 12/29/22 12/29/22 18:59 06:59 18:59 Intake Total 660 Output Total 1000 750 450 Balance -340 -750 -450 Weight 127.006 kg Intake: Oral 660 Output: Urine 1000 750 450 Other: Voiding Method Indwelling Catheter Indwelling Catheter # Bowel Movements 1 - Exam GENERAL DESCRIPTION: A middle-aged female lying in bed in no distress RESPIRATORY SYSTEM: Unlabored breathing , clear to auscultation anteriorly HEART: S1 S2 regular rate and rhythm , ABDOMEN: Soft , no tenderness EXTREMITIES: No edema feet - Labs CBC & Chem 7: 12/27/22 11:11 12/29/22 07:44 Labs: Abnormal Lab Results - Last 24 Hours (Table) 12/28/22 12/28/22 12/28/22 Range/Units 10:06 10:06 11:26 PT 15.5 H (10.0-12.5) sec INR 1.5 H (<1.2) Sodium 134 L (137-145) mmol/L Creatinine 0.41 L (0.52-1.04) mg/dL Glucose 180 H (74-99) mg/dL POC Glucose (mg/dL) 194 H (70-110) mg/dL Calcium 7.9 L (8.4-10.2) mg/dL 12/28/22 12/28/22 12/29/22 Range/Units 16:39 20:17 06:13 PT (10.0-12.5) sec INR (<1.2) Sodium (137-145) mmol/L Creatinine (0.52-1.04) mg/dL Glucose (74-99) mg/dL POC Glucose (mg/dL) 155 H 190 H 148 H (70-110) mg/dL Calcium (8.4-10.2) mg/dL 12/29/22 12/29/22 Range/Units 07:44 07:44 PT 15.1 H (10.0-12.5) sec INR 1.5 H (<1.2) Sodium (137-145) mmol/L Creatinine 0.46 L (0.52-1.04) mg/dL Glucose (74-99) mg/dL POC Glucose (mg/dL) (70-110) mg/dL Calcium (8.4-10.2) mg/dL Microbiology - Last 24 Hours (Table) 12/25/22 11:00 Gram Stain - Preliminary Coccyx Tissue Culture - Preliminary Enterococcus faecalis Gram Positive Bacilli Gram Neg Bacilli Assessment and Plan (1) Infection Current Visit: Yes Status: Acute Code(s): B99.9 - UNSPECIFIED INFECTIOUS DISEASE SNOMED Code(s): 91252908 (2) Sacral decubitus ulcer Current Visit: Yes Status: Acute Code(s): L89.159 - PRESSURE ULCER OF SACRAL REGION, UNSPECIFIED STAGE SNOMED Code(s): 540301945 Plan: 1patient presented to hospital with a worsening wound to the sacral area and this patient who is status post surgical debridement and deep cultures which are currently pending bone was not palpable at the wound base, we will need to cover for gram-positive as well as gram-negative pathogen 2-penicillin allergy with a rash a few years ago that will limit the number of antibiotics safe to use 3-patient local cultures are now growing gram-negative in addition to the group D enterococcus cefepime will be restarted vancomycin will be continued patient will get a PICC line for outpatient IV antibiotic therapy with the final discharge antibiotics on the basis of cultures this was discussed with the admitting team [employer] Dictation was produced using [employer] dictation software. please excuse any grammatical, word or spelling errors. Time with Patient: Less than 30
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
[2022-12-29 16:37] LABS: Glucose,Whole Blood 222 mg/dL (70-110)
[2022-12-29] MEDS ORDERED: WARFARIN 5 MG TAB PO ONE (18:00)
[2022-12-29 20:21] LABS: Glucose,Whole Blood 193 mg/dL (70-110)
[2022-12-29] MEDS: GABAPENTIN 400 MG CAP PO SCH (21:17)
[2022-12-30] MEDS: HYDROcodone/APAP 5-325MG 1 EACH TAB PO PRN ×2 (00:27→21:01)
[2022-12-30] MEDS: VANCOMYCIN 2,000 MG in SODIUM CHLORIDE 0.9% 500 ML 500 ML IVPB SCH ×2 (00:28→15:27)
[2022-12-30] MEDS: CEFEPIME 2 GM in SODIUM CHLORIDE 0.9% 100 ML IVPB SCH ×3 (00:28→15:31)
[2022-12-30 06:04] LABS: Glucose,Whole Blood 116 mg/dL (70-110)
[2022-12-30] MEDS: INSULIN ASPART (NovoLOG) 100 UNIT/ML VIAL SQ SCH ×4 (06:13→21:02)
[2022-12-30] MEDS: PANTOPRAZOLE 40 MG TABLET PO SCH (06:33)
[2022-12-30] MEDS: LINAGLIPTIN 5 MG TABLET PO SCH (09:33)
[2022-12-30] MEDS: ATORVASTATIN 20 MG TAB PO SCH (09:33)
[2022-12-30] MEDS: DILTIAZEM CD 120 MG CAP.ER.24H PO SCH (09:33)
[2022-12-30] MEDS: OXYBUTYNIN 10 MG TAB.ER.24 PO SCH (09:33)
[2022-12-30] MEDS: METOPROLOL SUCCINATE (ER) 100 MG TAB.ER.24H PO SCH (09:33)
[2022-12-30] MEDS: TRIAMCINOLONE ACET 0.1% OINTMENT 15 GM TUBE TOPICAL SCH ×2 (09:34→21:03)
[2022-12-30] MEDS: NYSTATIN 100,000 UNIT/GM OINT 30 GM TUBE TOPICAL SCH ×2 (09:34→21:02)
[2022-12-30] MEDS: traMADol 50 MG TAB PO PRN (09:47)
[2022-12-30] MEDS ORDERED: VANCOMYCIN TROUGH DUE 1 EACH MISC MISCELLANE ONE (11:00)
[2022-12-30 11:39] LABS: Glucose,Whole Blood 207 mg/dL (70-110)
[2022-12-30 13:23] LABS: African American GFR (CKD) >90 (>60 ml/min/1.73 sqM); Non-African American GFR(CKD) >90 (>60 ml/min/1.73 sqM)
[2022-12-30 13:41] LABS: INR 1.4 (<1.2); Prothrombin Time 14.6 sec (10.0-12.5)
--- NOTE | 2022-12-30 15:37 | P.PN ---
Subjective Progress Note Date: 12/30/22 Principal diagnosis: Infected sacral pressure ulcer Patient is a 62-year-old female with a past medical history significant for diabetes mellitus hypertension hyperlipidemia atrial fibrillation patient apparently has been sent to the ER for evaluation of worsening wound to the sacral area, patient did have a low-grade fever 100.4 and did have debridement of the wound by surgery and cultures are pending. On today's evaluation that is 12/30/2022, the patient remains to be afebrile, the patient is breathing comfortably on room air , the patient denies any chest pain or any cough , patient denies nausea/vomiting diarrhea and no abdominal pain, the patient pain to the sacral area is controlled with the current medication White count normalized to 9.8 as of 12/27/2022, creatinine is 0.46 culture growing group D enterococcus as well as gram-negative bacilli Objective - Vital Signs Vital signs: Vital Signs Temp 97.8 F 12/30/22 08:00 Pulse 86 12/30/22 08:00 Resp 18 12/30/22 08:00 BP 93/55 12/30/22 08:00 Pulse Ox 96 12/30/22 08:00 FiO2 Intake & Output 12/29/22 12/30/22 12/30/22 18:59 06:59 18:59 Intake Total 240 240 Output Total 0 1974 Balance -1309 240 Intake: Oral 240 240 Output: Urine 1550 1974 Other: Voiding Method Indwelling Catheter Indwelling Catheter Indwelling Catheter # Voids 1 1 - Exam GENERAL DESCRIPTION: A middle-aged female lying in bed in no distress RESPIRATORY SYSTEM: Unlabored breathing , clear to auscultation anteriorly HEART: S1 S2 regular rate and rhythm , ABDOMEN: Soft , no tenderness Sacral pressure ulcer stage III bone is nonpalpable at the base of the wound minimal slough tissue surrounding redness no foul-smelling drainage EXTREMITIES: No edema feet - Labs CBC & Chem 7: 12/27/22 11:11 12/30/22 12:16 Labs: Abnormal Lab Results - Last 24 Hours (Table) 12/29/22 12/29/22 12/29/22 Range/Units 11:48 16:36 20:19 POC Glucose (mg/dL) 156 H 222 H 193 H (70-110) mg/dL 12/30/22 Range/Units 06:02 POC Glucose (mg/dL) 116 H (70-110) mg/dL Assessment and Plan (1) Infection Current Visit: Yes Status: Acute Code(s): B99.9 - UNSPECIFIED INFECTIOUS DISEASE SNOMED Code(s): 73611260 (2) Sacral decubitus ulcer Current Visit: Yes Status: Acute Code(s): L89.159 - PRESSURE ULCER OF SACRAL REGION, UNSPECIFIED STAGE SNOMED Code(s): 223835358 Plan: 1patient presented to hospital with a worsening wound to the sacral area and this patient who is status post surgical debridement and deep cultures which are currently pending bone was not palpable at the wound base, we will need to cover for gram-positive as well as gram-negative pathogen 2-penicillin allergy with a rash a few years ago that will limit the number of antibiotics safe to use 3-patient local cultures are currently growing gram-negative in addition to the group D enterococcus , patient to continue with cefepime and vancomycin while waiting for the culture to finalize to determine discharge antibiotics Dictation was produced using [employer] dictation software. please excuse any grammatical, word or spelling errors. Time with Patient: Less than 30
--- NOTE | 2022-12-30 16:08 | P.PN ---
Subjective Progress Note Date: 12/30/22 62-year-old the female is admitted for infected decubitus ulcers stage IV 2 words the right thigh and sacrum. The [facility] is [facility] in [facility] is bedbound not much of the information is available from the ER note. No workup was done in ER patient was started on Aricept. And vancomycin and admitted with consultation to vascular surgery I do not have any labs available patient is on Coumadin unsure why patient is on Coumadin unable to get much of the history from the patient. No history is available from ER physician either. Patient is bit hypotensive is on antidepressant medication. Patient did have fever. Objective - Vital Signs Vital signs: Vital Signs Temp 97.8 F 12/30/22 08:00 Pulse 86 12/30/22 08:00 Resp 18 12/30/22 08:00 BP 93/55 12/30/22 08:00 Pulse Ox 96 12/30/22 08:00 FiO2 Intake & Output 12/29/22 12/30/22 12/30/22 18:59 06:59 18:59 Intake Total 240 240 Output Total 1550 1974 Balance -1309 -1974 240 Intake: Oral 240 240 Output: Urine 1549 1974 Other: Voiding Method Indwelling Catheter Indwelling Catheter Indwelling Catheter # Voids 1 1 - Exam GENERAL: The patient is alert , not in any acute distress. Well developed, well nourished. HEENT: Pupils are round and equally reacting to light. EOMI. No scleral icterus. No conjunctival pallor. Normocephalic, atraumatic. No pharyngeal erythema. No thyromegaly. CARDIOVASCULAR: S1 and S2 present. No murmurs, rubs, or gallops. PULMONARY: Chest is clear to auscultation, no wheezing or crackles. ABDOMEN: Soft, nontender, nondistended, normoactive bowel sounds. No palpable organomegaly. MUSCULOSKELETAL: Patient does have or deformity of the spine mostly bedbound hunched over EXTREMITIES: No cyanosis, clubbing, or pedal edema. NEUROLOGICAL: Unable to assess doesn't appear to have any new focal deficits. SKIN: No rashes. Sacral ulceration as above in HPI. chronic skin changes bilateral lower extremity. - Labs CBC & Chem 7: 12/27/22 11:11 12/30/22 12:16 Labs: Abnormal Lab Results - Last 24 Hours (Table) 12/29/22 12/29/22 12/30/22 Range/Units 16:36 20:19 06:02 Creatinine (0.52-1.04) mg/dL POC Glucose (mg/dL) 222 H 193 H 116 H (70-110) mg/dL 12/30/22 12/30/22 Range/Units 11:37 12:16 Creatinine 0.46 L (0.52-1.04) mg/dL POC Glucose (mg/dL) 207 H (70-110) mg/dL Assessment and Plan Assessment: -Infected sacral decubitus ulcer patient did have fever may have sepsis, status post sugical debridement of wound continues on IV Cefepime and IV vancomycin with ID and vascular consultation. -Intertrigo in the groin folds mycostatin cream ordered -Tachycardia secondary to sepsis and hypotension secondary to sepsis, improving with IV fluids. -Atrial fibrillation history patient is in chronic A. fib anticoaguated with warfarin. -Type 2 diabetes mellitus -Hyperlipidemia -Hypertension -History of diabetic neuropathy -History of overactive bladder -Anxiety -Former Smoker DVT prophylaxis: Patient is on Coumadin resumed post debridement GI prophylaxis: protonix Full Code Plan PT.OT consultation and social work. APS referral has been placed. Continue on antibiotics pending ID recommendations for discharge. Plan is for DC to [facility] on discharge. Auth has been obtained. PICC line has been ordered pending final wound culture and microsensitivities. Possible D/C in the next 24 hours.
[2022-12-30 16:46] LABS: Glucose,Whole Blood 194 mg/dL (70-110)
[2022-12-30] MEDS ORDERED: WARFARIN 7.5 MG TAB PO ONE (18:00)
[2022-12-30 20:23] LABS: Glucose,Whole Blood 191 mg/dL (70-110)
[2022-12-30] MEDS: GABAPENTIN 400 MG CAP PO SCH (21:01)
[2022-12-31] MEDS: VANCOMYCIN 2,250 MG in SODIUM CHLORIDE 0.9% 500 ML 500 ML IVPB SCH ×3 (00:23→23:03)
[2022-12-31] MEDS: CEFEPIME 2 GM in SODIUM CHLORIDE 0.9% 100 ML IVPB SCH ×4 (00:23→23:03)
[2022-12-31 06:22] LABS: Glucose,Whole Blood 157 mg/dL (70-110)
[2022-12-31] MEDS: PANTOPRAZOLE 40 MG TABLET PO SCH (07:01)
[2022-12-31] MEDS: INSULIN ASPART (NovoLOG) 100 UNIT/ML VIAL SQ SCH ×4 (07:01→21:00)
[2022-12-31] MEDS: ATORVASTATIN 20 MG TAB PO SCH (08:30)
[2022-12-31] MEDS: METOPROLOL SUCCINATE (ER) 100 MG TAB.ER.24H PO SCH (08:30)
[2022-12-31] MEDS: LINAGLIPTIN 5 MG TABLET PO SCH (08:30)
[2022-12-31] MEDS: HYDROcodone/APAP 5-325MG 1 EACH TAB PO PRN ×2 (08:30→17:09)
[2022-12-31] MEDS: DILTIAZEM CD 120 MG CAP.ER.24H PO SCH (08:30)
[2022-12-31] MEDS: TRIAMCINOLONE ACET 0.1% OINTMENT 15 GM TUBE TOPICAL SCH ×2 (08:31→21:01)
[2022-12-31] MEDS: NYSTATIN 100,000 UNIT/GM OINT 30 GM TUBE TOPICAL SCH ×2 (08:31→21:01)
[2022-12-31] MEDS: OXYBUTYNIN 10 MG TAB.ER.24 PO SCH (08:34)
[2022-12-31 09:02] LABS: Basophils % (A) 0 %; Eosinophils # (A) 0.4 k/uL (0-0.7); Eosinophils % (A) 4 %; HCT 33.2 % (34.0-46.0); HGB 10.6 gm/dL (11.4-16.0); Hypochromasia Slight; Lymphocytes # (A) 1.5 k/uL (1.0-4.8); Lymphocytes % (A) 17 %; MCH 31.2 pg (25.0-35.0); MCV 97.3 fL (80.0-100.0); Mean Platelet Volume 7.9; Monocytes # (A) 0.7 k/uL (0-1.0); Monocytes % (A) 7 %; Neutrophils # (A) 6.1 k/uL (1.3-7.7); Neutrophils % (A) 70 %; Platelet Count 298 k/uL (150-450); RBC 3.41 m/uL (3.80-5.40); RDW 12.5 % (11.5-15.5); WBC 8.8 k/uL (3.8-10.6)
[2022-12-31 09:10] LABS: INR 1.5 (<1.2); Prothrombin Time 15.6 sec (10.0-12.5)
[2022-12-31 09:24] LABS: African American GFR (CKD) >90 (>60 ml/min/1.73 sqM); Anion Gap 6 mmol/L; Blood Urea Nitrogen 11 mg/dL (7-17); Calcium 8.1 mg/dL (8.4-10.2); Carbon Dioxide 30 mmol/L (22-30); Chloride 100 mmol/L (98-107); Glucose 129 mg/dL (74-99); Non-African American GFR(CKD) >90 (>60 ml/min/1.73 sqM); Potassium 4.4 mmol/L (3.5-5.1); Sodium 136 mmol/L (137-145)
--- NOTE | 2022-12-31 11:22 | P.PN ---
Subjective Progress Note Date: 12/31/22 Principal diagnosis: Infected sacral pressure ulcer Patient is a 62-year-old female with a past medical history significant for diabetes mellitus hypertension hyperlipidemia atrial fibrillation patient apparently has been sent to the ER for evaluation of worsening wound to the sacral area, patient did have a low-grade fever 100.4 and did have debridement of the wound by surgery and cultures are pending. On today's evaluation that is 12/31/2022, the patient denies any fever or any chills, the patient is breathing comfortably on room air without any need for supplemental oxygen, the patient denies any chest pain or any cough , patient denies abdominal pain, no nausea/vomiting diarrhea the patient , the patient denies any worsening pain to the sacral area White count is normal at 8.8, creatinine 0.42, local culture growing group D enterococcus as well as anaerobes and Acinetobacter Objective - Vital Signs Vital signs: Vital Signs Temp 98.5 F 12/31/22 08:00 Pulse 85 12/31/22 08:00 Resp 18 12/31/22 08:00 BP 109/58 12/31/22 08:00 Pulse Ox 93 L 12/31/22 08:00 FiO2 Intake & Output 12/30/22 12/31/22 12/31/22 18:59 06:59 18:59 Intake Total 476 180 Output Total 4900 Balance 476 -4900 180 Intake: Oral 476 180 Output: Urine 4900 Other: Voiding Method Indwelling Catheter Indwelling Catheter # Bowel Movements 1 - Exam GENERAL DESCRIPTION: A middle-aged female lying in bed in no distress RESPIRATORY SYSTEM: Unlabored breathing , clear to auscultation anteriorly HEART: S1 S2 regular rate and rhythm , ABDOMEN: Soft , no tenderness Sacral pressure ulcer stage III is currently dressed EXTREMITIES: No edema feet - Labs CBC & Chem 7: 12/31/22 07:34 12/31/22 07:34 Labs: Abnormal Lab Results - Last 24 Hours (Table) 12/30/22 12/30/22 12/30/22 Range/Units 11:37 12:16 12:16 RBC (3.80-5.40) m/uL Hgb (11.4-16.0) gm/dL Hct (34.0-46.0) % PT 14.6 H (10.0-12.5) sec INR 1.4 H (<1.2) Sodium (137-145) mmol/L Creatinine 0.46 L (0.52-1.04) mg/dL Glucose (74-99) mg/dL POC Glucose (mg/dL) 207 H (70-110) mg/dL Calcium (8.4-10.2) mg/dL 12/30/22 12/30/22 12/31/22 Range/Units 16:44 20:22 06:21 RBC (3.80-5.40) m/uL Hgb (11.4-16.0) gm/dL Hct (34.0-46.0) % PT (10.0-12.5) sec INR (<1.2) Sodium (137-145) mmol/L Creatinine (0.52-1.04) mg/dL Glucose (74-99) mg/dL POC Glucose (mg/dL) 194 H 191 H 157 H (70-110) mg/dL Calcium (8.4-10.2) mg/dL 12/31/22 12/31/22 12/31/22 Range/Units 07:34 07:34 07:34 RBC 3.41 L (3.80-5.40) m/uL Hgb 10.6 L (11.4-16.0) gm/dL Hct 33.2 L (34.0-46.0) % PT 15.6 H (10.0-12.5) sec INR 1.5 H (<1.2) Sodium 136 L (137-145) mmol/L Creatinine 0.42 L (0.52-1.04) mg/dL Glucose 129 H (74-99) mg/dL POC Glucose (mg/dL) (70-110) mg/dL Calcium 8.1 L (8.4-10.2) mg/dL Microbiology - Last 24 Hours (Table) 12/25/22 11:00 Gram Stain - Preliminary Coccyx Tissue Culture - Preliminary Enterococcus faecalis Gram Positive Bacilli Acinetobacter constantino/haemol Anaerobic Gm Positive Bacill Anaerobic Gram Positive Cocci Anaerobic Gm Positive Bacill#2 Assessment and Plan (1) Infection Current Visit: Yes Status: Acute Code(s): B99.9 - UNSPECIFIED INFECTIOUS DISEASE SNOMED Code(s): 60314973 (2) Sacral decubitus ulcer Current Visit: Yes Status: Acute Code(s): L89.159 - PRESSURE ULCER OF SACRAL REGION, UNSPECIFIED STAGE SNOMED Code(s): 629702932 Plan: 1patient presented to hospital with a worsening wound to the sacral area and this patient who is status post surgical debridement and deep cultures which are currently pending bone was not palpable at the wound base, we will need to cover for gram-positive as well as gram-negative pathogen 2-penicillin allergy with a rash a few years ago that will limit the number of antibiotics safe to use 3-patient local cultures are currently growing group D enterococcus and Acinetobacter and anaerobic gram-positive bacilli, patient to continue with cefepime , vancomycin will add Flagyl for anaerobic coverage patient will continue with these antibiotics for 2-3 weeks depending on clinical response Dictation was produced using [employer] dictation software. please excuse any grammatical, word or spelling errors. Time with Patient: Less than 30
[2022-12-31 11:39] LABS: Glucose,Whole Blood 219 mg/dL (70-110)
[2022-12-31] MEDS: metroNIDAZOLE 500 MG TAB PO SCH ×3 (12:59→21:00)
[2022-12-31] MEDS: traMADol 50 MG TAB PO PRN (13:01)
--- NOTE | 2022-12-31 17:18 | P.PN ---
Subjective Progress Note Date: 12/31/22 62-year-old the female is admitted for infected decubitus ulcers stage IV 2 words the right thigh and sacrum. [facility] bed[facility] not much of the information is available from the ER note. No workup was done in ER patient was started on Aricept. And vancomycin and admitted with consultation to vascular surgery I do not have any labs available patient is on Coumadin unsure why patient is on Coumadin unable to get much of the history from the patient. No history is available from ER physician either. Patient is bit hypotensive is on antidepressant medication. Patient did have fever. 12/31/2022, the patient denies any fever or any chills, the patient is breathing comfortably on room air without any need for supplemental oxygen, the patient denies any chest pain or any cough , patient denies abdominal pain, no nausea/vomiting diarrhea the patient , the patient denies any worsening pain to the sacral area White count is normal at 8.8, creatinine 0.42, local culture growing group D enterococcus as well as anaerobes and Acinetobacter Objective - Vital Signs Vital signs: Vital Signs Temp 98.5 F 12/31/22 08:00 Pulse 85 12/31/22 08:00 Resp 18 12/31/22 08:00 BP 109/58 12/31/22 08:00 Pulse Ox 93 L 12/31/22 08:00 FiO2 Intake & Output 12/30/22 12/31/22 12/31/22 18:59 06:59 18:59 Intake Total 476 180 Output Total 4900 Balance 476 -4900 180 Intake: Oral 476 180 Output: Urine 4900 Other: Voiding Method Indwelling Catheter Indwelling Catheter # Bowel Movements 1 - Exam GENERAL: The patient is alert , not in any acute distress. Well developed, well nourished. HEENT: Pupils are round and equally reacting to light. EOMI. No scleral icterus. No conjunctival pallor. Normocephalic, atraumatic. No pharyngeal erythema. No thyromegaly. CARDIOVASCULAR: S1 and S2 present. No murmurs, rubs, or gallops. PULMONARY: Chest is clear to auscultation, no wheezing or crackles. ABDOMEN: Soft, nontender, nondistended, normoactive bowel sounds. No palpable organomegaly. MUSCULOSKELETAL: Patient does have or deformity of the spine mostly bedbound hunched over EXTREMITIES: No cyanosis, clubbing, or pedal edema. NEUROLOGICAL: Unable to assess doesn't appear to have any new focal deficits. SKIN: No rashes. Sacral ulceration as above in HPI. chronic skin changes bilateral lower extremity. - Labs CBC & Chem 7: 12/31/22 07:34 12/31/22 07:34 Labs: Abnormal Lab Results - Last 24 Hours (Table) 12/30/22 12/30/22 12/30/22 Range/Units 12:16 12:16 16:44 RBC (3.80-5.40) m/uL Hgb (11.4-16.0) gm/dL Hct (34.0-46.0) % PT 14.6 H (10.0-12.5) sec INR 1.4 H (<1.2) Sodium (137-145) mmol/L Creatinine 0.46 L (0.52-1.04) mg/dL Glucose (74-99) mg/dL POC Glucose (mg/dL) 194 H (70-110) mg/dL Calcium (8.4-10.2) mg/dL 12/30/22 12/31/22 12/31/22 Range/Units 20:22 06:21 07:34 RBC (3.80-5.40) m/uL Hgb (11.4-16.0) gm/dL Hct (34.0-46.0) % PT (10.0-12.5) sec INR (<1.2) Sodium 136 L (137-145) mmol/L Creatinine 0.42 L (0.52-1.04) mg/dL Glucose 129 H (74-99) mg/dL POC Glucose (mg/dL) 191 H 157 H (70-110) mg/dL Calcium 8.1 L (8.4-10.2) mg/dL 12/31/22 12/31/22 12/31/22 Range/Units 07:34 07:34 11:37 RBC 3.41 L (3.80-5.40) m/uL Hgb 10.6 L (11.4-16.0) gm/dL Hct 33.2 L (34.0-46.0) % PT 15.6 H (10.0-12.5) sec INR 1.5 H (<1.2) Sodium (137-145) mmol/L Creatinine (0.52-1.04) mg/dL Glucose (74-99) mg/dL POC Glucose (mg/dL) 219 H (70-110) mg/dL Calcium (8.4-10.2) mg/dL Microbiology - Last 24 Hours (Table) 12/25/22 11:00 Gram Stain - Preliminary Coccyx Tissue Culture - Preliminary Enterococcus faecalis Gram Positive Bacilli Acinetobacter constantino/haemol Anaerobic Gm Positive Bacill Anaerobic Gram Positive Cocci Anaerobic Gm Positive Bacill#2 Assessment and Plan Assessment: -Infected sacral decubitus ulcer patient did have fever may have sepsis, status post sugical debridement of wound continues on IV Cefepime and IV vancomycin with ID and vascular consultation. -Intertrigo in the groin folds mycostatin cream ordered -Tachycardia secondary to sepsis and hypotension secondary to sepsis, improving with IV fluids. -Atrial fibrillation history patient is in chronic A. fib anticoaguated with warfarin. -Type 2 diabetes mellitus -Hyperlipidemia -Hypertension -History of diabetic neuropathy -History of overactive bladder -Anxiety -Former Smoker DVT prophylaxis: Patient is on Coumadin resumed post debridement GI prophylaxis: protonix Full Code Plan PT.OT consultation and social work. APS referral has been placed. Continue on antibiotics pending ID recommendations for discharge. Plan is for DC to [facility] on discharge. Auth has been obtained. PICC line has been ordered pending final wound culture and microsensitivities. Possible D/C in the next 24 hours.
[2022-12-31 17:38] LABS: Glucose,Whole Blood 193 mg/dL (70-110)
[2022-12-31] MEDS ORDERED: WARFARIN 7.5 MG TAB PO ONE (18:00)
[2022-12-31 20:26] LABS: Glucose,Whole Blood 179 mg/dL (70-110)
[2022-12-31] MEDS: GABAPENTIN 400 MG CAP PO SCH (20:59)
[2023-01-01] MEDS: HYDROcodone/APAP 5-325MG 1 EACH TAB PO PRN ×2 (04:36→16:57)
[2023-01-01 05:04] LABS: INR 1.7 (<1.2); Prothrombin Time 16.8 sec (10.0-12.5)
[2023-01-01 07:28] LABS: Glucose,Whole Blood 136 mg/dL (70-110)
[2023-01-01] MEDS: INSULIN ASPART (NovoLOG) 100 UNIT/ML VIAL SQ SCH ×4 (07:32→21:38)
[2023-01-01] MEDS: metroNIDAZOLE 500 MG TAB PO SCH ×3 (09:02→21:38)
[2023-01-01] MEDS: CEFEPIME 2 GM in SODIUM CHLORIDE 0.9% 100 ML IVPB SCH ×3 (09:02→23:56)
[2023-01-01] MEDS: ATORVASTATIN 20 MG TAB PO SCH (09:02)
[2023-01-01] MEDS: OXYBUTYNIN 10 MG TAB.ER.24 PO SCH (09:03)
[2023-01-01] MEDS: PANTOPRAZOLE 40 MG TABLET PO SCH (09:03)
[2023-01-01] MEDS: NYSTATIN 100,000 UNIT/GM OINT 30 GM TUBE TOPICAL SCH ×2 (09:04→21:40)
[2023-01-01] MEDS: TRIAMCINOLONE ACET 0.1% OINTMENT 15 GM TUBE TOPICAL SCH ×2 (09:04→21:39)
[2023-01-01] MEDS: traMADol 50 MG TAB PO PRN (09:10)
[2023-01-01] MEDS: LINAGLIPTIN 5 MG TABLET PO SCH (09:11)
[2023-01-01] MEDS: METOPROLOL SUCCINATE (ER) 100 MG TAB.ER.24H PO SCH (09:11)
[2023-01-01] MEDS: DILTIAZEM CD 120 MG CAP.ER.24H PO SCH (09:11)
[2023-01-01 10:13] LABS: BUN/Creat Ratio 28.25 Ratio (12.00-20.00); Blood Urea Nitrogen 11.3 mg/dL (9.0-27.0); Calcium 8.4 mg/dL (8.7-10.3); Carbon Dioxide 30.2 mmol/L (21.6-31.8); Chloride 100 mmol/L (96-109); Glucose 139 mg/dL (70-110); Potassium 4.5 mmol/L (3.5-5.5); Sodium 138 mmol/L (135-145)
[2023-01-01 12:40] LABS: Glucose,Whole Blood 183 mg/dL (70-110)
[2023-01-01 12:59] LABS: Basophils # (A) 0.07 X 10*3/uL (0.00-0.10); Basophils % (A) 0.7 %; Eosinophils # (A) 0.64 X 10*3/uL (0.04-0.35); Eosinophils % (A) 6.3 %; HCT 34.9 % (37.2-46.3); HGB 10.7 g/dL (12.0-15.0); Lymphocytes # (A) 1.91 X 10*3/uL (0.90-5.00); Lymphocytes % (A) 18.7 %; MCH 30.1 pg (27.0-32.0); MCHC 30.7 g/dL (32.0-37.0); MCV 98.3 FL (80.0-97.0); Monocytes # (A) 1.03 X 10*3/uL (0.20-1.00); Monocytes % (A) 10.1 %; NRBC Per 100 WBC 0 X 10*3/uL (0.00-0.01); Neutrophils # (A) 6.48 X 10*3/uL (1.80-7.70); Neutrophils % (A) 63.6 %; Platelet Count 322 X 10*3/uL (140-440); RBC 3.55 X 10*6/uL (4.10-5.20); RDW 13.3 % (11.5-14.5); WBC 10.19 X 10*3/uL (4.50-10.00)
[2023-01-01] MEDS: VANCOMYCIN 2,250 MG in SODIUM CHLORIDE 0.9% 500 ML 500 ML IVPB SCH ×2 (14:12→23:56)
--- NOTE | 2023-01-01 15:55 | P.PN ---
Subjective Progress Note Date: 01/01/23 Principal diagnosis: Infected sacral pressure ulcer Patient is a 62-year-old female with a past medical history significant for diabetes mellitus hypertension hyperlipidemia atrial fibrillation patient apparently has been sent to the ER for evaluation of worsening wound to the sacral area, patient did have a low-grade fever 100.4 and did have debridement of the wound by surgery and cultures are pending. On today's evaluation that is 01/01/2023, the patient remains to be afebrile , the patient is breathing comfortably on room air and denies any shortness of breath, the patient denies any chest pain cough or sputum production, patient denies nausea/vomiting/ diarrhea and no abdominal pain , the patient pain to the sacral area has decreased in intensity White count is 10.19, creatinine 0.4, local culture growing group D enterococcus as well as anaerobes and Acinetobacter Objective - Vital Signs Vital signs: Vital Signs Temp 98.3 F 01/01/23 12:50 Pulse 83 01/01/23 12:50 Resp 17 01/01/23 12:50 BP 101/55 01/01/23 12:50 Pulse Ox 92 L 01/01/23 12:50 FiO2 Intake & Output 12/31/22 01/01/23 01/01/23 18:59 06:59 18:59 Intake Total 360 1250 Output Total 1050 1100 Balance -690 150 Intake: IV 60 0.9 60 Intake, IV Titration 600 Amount Cefepime 2 gm In Sodium 100 Chloride 0.9% 100 ml @ 25 mls/hr IVPB Q8HR [facility] Rx# :[id number] Vancomycin 2,250 mg In 500 Sodium Chloride 0.9% 500 ml 500 ml @ 167 mls/hr IVPB Q12H [facility] Rx#: [id number] Oral 360 590 Output: Urine 1050 1100 Other: Voiding Method Indwelling Catheter Indwelling Catheter # Bowel Movements 1 - Exam GENERAL DESCRIPTION: A middle-aged female lying in bed in no distress RESPIRATORY SYSTEM: Unlabored breathing , clear to auscultation anteriorly HEART: S1 S2 regular rate and rhythm , ABDOMEN: Soft , no tenderness Sacral pressure ulcer stage III is currently dressed EXTREMITIES: No edema feet - Labs CBC & Chem 7: 01/01/23 04:28 01/01/23 04:28 Labs: Abnormal Lab Results - Last 24 Hours (Table) 12/31/22 12/31/2201/01/23 Range/Units 17:35 20:23 04:28 WBC 10.19 H (4.50-10.00) X 10*3/uL RBC 3.55 L (4.10-5.20) X 10*6/uL Hgb 10.7 L (12.0-15.0) g/dL Hct 34.9 L (37.2-46.3) % MCV 98.3 H (80.0-97.0) FL MCHC 30.7 L (32.0-37.0) g/dL Monocytes # 1.03 H (0.20-1.00) X 10*3/uL Eosinophils # 0.64 H (0.04-0.35) X 10*3/uL PT (10.0-12.5) sec INR (<1.2) Creatinine (0.6-1.5) mg/dL BUN/Creatinine Ratio (12.00-20.00) Ratio Glucose (70-110) mg/dL POC Glucose (mg/dL) 193 H 179 H (70-110) mg/dL Calcium (8.7-10.3) mg/dL 01/01/23 01/01/23 01/01/23 Range/Units 04:28 04:28 07:27 WBC (4.50-10.00) X 10*3/uL RBC (4.10-5.20) X 10*6/uL Hgb (12.0-15.0) g/dL Hct (37.2-46.3) % MCV (80.0-97.0) FL MCHC (32.0-37.0) g/dL Monocytes # (0.20-1.00) X 10*3/uL Eosinophils # (0.04-0.35) X 10*3/uL PT 16.8 H (10.0-12.5) sec INR 1.7 H (<1.2) Creatinine 0.4 L (0.6-1.5) mg/dL BUN/Creatinine Ratio 28.25 H (12.00-20.00) Ratio Glucose 139 H (70-110) mg/dL POC Glucose (mg/dL) 136 H (70-110) mg/dL Calcium 8.4 L (8.7-10.3) mg/dL 01/01/23 Range/Units 12:30 WBC (4.50-10.00) X 10*3/uL RBC (4.10-5.20) X 10*6/uL Hgb (12.0-15.0) g/dL Hct (37.2-46.3) % MCV (80.0-97.0) FL MCHC (32.0-37.0) g/dL Monocytes # (0.20-1.00) X 10*3/uL Eosinophils # (0.04-0.35) X 10*3/uL PT (10.0-12.5) sec INR (<1.2) Creatinine (0.6-1.5) mg/dL BUN/Creatinine Ratio (12.00-20.00) Ratio Glucose (70-110) mg/dL POC Glucose (mg/dL) 183 H (70-110) mg/dL Calcium (8.7-10.3) mg/dL Microbiology - Last 24 Hours (Table) 12/25/22 11:00 Gram Stain - Final Coccyx Tissue Culture - Final Enterococcus faecalis Gram Positive Bacilli Acinetobacter constantino/haemol Clostridium species Anaerobic Gram Positive Cocci Anaerobic Gm Positive Bacill Assessment and Plan (1) Infection Current Visit: Yes Status: Acute Code(s): B99.9 - UNSPECIFIED INFECTIOUS DISEASE SNOMED Code(s): 35735928 (2) Sacral decubitus ulcer Current Visit: Yes Status: Acute Code(s): L89.159 - PRESSURE ULCER OF SACRAL REGION, UNSPECIFIED STAGE SNOMED Code(s): 101242928 Plan: 1patient presented to hospital with a worsening wound to the sacral area and this patient who is status post surgical debridement and deep cultures which are currently pending bone was not palpable at the wound base, we will need to cover for gram-positive as well as gram-negative pathogen 2-penicillin allergy with a rash a few years ago that will limit the number of antibiotics safe to use 3-patient local cultures are currently growing group D enterococcus and Acinetobacter and anaerobic gram-positive bacilli, because of her penicillin ALLERGY patient is on cefepime , vancomycin and Flagyl which will be continued for 3 weeks on discharge and close patient follow-up Dictation was produced using [employer] dictation software. please excuse any grammatical, word or spelling errors. Time with Patient: Less than 30
[2023-01-01 17:07] LABS: Glucose,Whole Blood 218 mg/dL (70-110)
--- NOTE | 2023-01-01 17:14 | P.PN ---
Subjective Progress Note Date: 01/01/23 62-year-old the female is admitted for infected decubitus ulcers stage IV 2 words the right thigh and sacrum. The patient is sent in from care home is bedbound not much of the information is available from the ER note. No workup was done in ER patient was started on Aricept. And vancomycin and admitted with consultation to vascular surgery I do not have any labs available patient is on Coumadin unsure why patient is on Coumadin unable to get much of the history from the patient. No history is available from ER physician either. Patient is bit hypotensive is on antidepressant medication. Patient did have fever. 12/31/2022, the patient denies any fever or any chills, the patient is breathing comfortably on room air without any need for supplemental oxygen, the patient denies any chest pain or any cough , patient denies abdominal pain, no nausea/vomiting diarrhea the patient , the patient denies any worsening pain to the sacral area White count is normal at 8.8, creatinine 0.42, local culture growing group D enterococcus as well as anaerobes and Acinetobacter 01/01/2023 --the patient remains to be afebrile , the patient is breathing comfortably on room air and denies any shortness of breath, the patient denies any chest pain cough or sputum production, patient denies nausea/vomiting/ diarrhea and no abdominal pain , the patient pain to the sacral area has decreased in intensity White count is 10.19, creatinine 0.4, local culture growing group D enterococcus as well as anaerobes and Acinetobacter --patient presented to hospital with a worsening wound to the sacral area and this patient who is status post surgical debridement and deep cultures which are currently pending bone was not palpable at the wound base, we will need to cover for gram-positive as well as gram-negative pathogen --penicillin allergy with a rash a few years ago that will limit the number of antibiotics safe to use --patient local cultures are currently growing group D enterococcus and Acinetobacter and anaerobic gram-positive bacilli, because of her penicillin ALLERGY patient is on cefepime , vancomycin and Flagyl which will be continued for 3 weeks on discharge and close patient follow-up Objective - Vital Signs Vital signs: Vital Signs Temp 98.1 F 01/01/23 07:25 Pulse 92 01/01/23 07:25 Resp 18 01/01/23 07:25 BP 113/70 01/01/23 07:25 Pulse Ox 92 L 01/01/23 07:25 FiO2 Intake & Output 12/31/22 01/01/23 01/01/23 18:59 06:59 18:59 Intake Total 360 1250 Output Total 1050 1100 Balance -690 150 Intake: IV 60 0.9 60 Intake, IV Titration 600 Amount Cefepime 2 gm In Sodium 100 Chloride 0.9% 100 ml @ 25 mls/hr IVPB Q8HR [facility] Rx# :[id number] Vancomycin 2,250 mg In 500 Sodium Chloride 0.9% 500 ml 500 ml @ 167 mls/hr IVPB Q12H [facility] Rx#: [id number] Oral 360 590 Output: Urine 1050 1100 Other: Voiding Method Indwelling Catheter Indwelling Catheter # Bowel Movements 1 - Exam GENERAL: The patient is alert , not in any acute distress. Well developed, well nourished. HEENT: Pupils are round and equally reacting to light. EOMI. No scleral icterus. No conjunctival pallor. Normocephalic, atraumatic. No pharyngeal erythema. No thyromegaly. CARDIOVASCULAR: S1 and S2 present. No murmurs, rubs, or gallops. PULMONARY: Chest is clear to auscultation, no wheezing or crackles. ABDOMEN: Soft, nontender, nondistended, normoactive bowel sounds. No palpable organomegaly. MUSCULOSKELETAL: Patient does have or deformity of the spine mostly bedbound hunched over EXTREMITIES: No cyanosis, clubbing, or pedal edema. NEUROLOGICAL: Unable to assess doesn't appear to have any new focal deficits. SKIN: No rashes. Sacral ulceration as above in HPI. chronic skin changes bilateral lower extremity. - Labs CBC & Chem 7: 01/01/23 04:28 01/01/23 04:28 Labs: Abnormal Lab Results - Last 24 Hours (Table) 12/31/22 12/31/22 01/01/23 Range/Units 17:35 20: 04:28 PT (10.0-12.5) sec INR (<1.2) Creatinine 0.4 L (0.6-1.5) mg/dL BUN/Creatinine Ratio 28.25 H (12.00-20.00) Ratio Glucose 139 H (70-110) mg/dL POC Glucose (mg/dL) 193 H 179 H (70-110) mg/dL Calcium 8.4 L (8.7-10.3) mg/dL 01/01/23 01/01/23 01/01/23 Range/Units 04:28 07:27 12:30 PT 16.8 H (10.0-12.5) sec INR 1.7 H (<1.2) Creatinine (0.6-1.5) mg/dL BUN/Creatinine Ratio (12.00-20.00) Ratio Glucose (70-110) mg/dL POC Glucose (mg/dL) 136 H 183 H (70-110) mg/dL Calcium (8.7-10.3) mg/dL Microbiology - Last 24 Hours (Table) 12/25/22 11:00 Gram Stain - Final Coccyx Tissue Culture - Final Enterococcus faecalis Gram Positive Bacilli Acinetobacter constantino/haemol Clostridium species Anaerobic Gram Positive Cocci Anaerobic Gm Positive Bacill Assessment and Plan Assessment: -Infected sacral decubitus ulcer patient did have fever may have sepsis, status post sugical debridement of wound continues on IV Cefepime and IV vancomycin with ID and vascular consultation. -Intertrigo in the groin folds mycostatin cream ordered -Tachycardia secondary to sepsis and hypotension secondary to sepsis, improving with IV fluids. -Atrial fibrillation history patient is in chronic A. fib anticoaguated with warfarin. -Type 2 diabetes mellitus -Hyperlipidemia -Hypertension -History of diabetic neuropathy -History of overactive bladder -Anxiety -Former Smoker DVT prophylaxis: Patient is on Coumadin resumed post debridement GI prophylaxis: protonix Full Code Plan PT.OT consultation and social work. APS referral has been placed. Continue on antibiotics pending ID recommendations for discharge. Plan is for [facility] on discharge. Auth has been obtained. PICC line has been ordered pending final wound culture and microsensitivities. Possible D/C in the next 24 hours.
[2023-01-01] MEDS ORDERED: WARFARIN 7.5 MG TAB PO ONE (18:00)
[2023-01-01 21:26] LABS: Glucose,Whole Blood 167 mg/dL (70-110)
[2023-01-01] MEDS: GABAPENTIN 400 MG CAP PO SCH (21:38)
[2023-01-02] MEDS: HYDROcodone/APAP 5-325MG 1 EACH TAB PO PRN ×2 (03:54→09:50)
[2023-01-02 07:06] LABS: INR 1.9 (<1.2); Prothrombin Time 19.1 sec (10.0-12.5)
[2023-01-02 07:07] LABS: Glucose,Whole Blood 155 mg/dL (70-110)
[2023-01-02 07:46] VITALS: PULSE 84; RESP 18
[2023-01-02] MEDS: INSULIN ASPART (NovoLOG) 100 UNIT/ML VIAL SQ SCH ×2 (08:09→12:56)
[2023-01-02] MEDS: PANTOPRAZOLE 40 MG TABLET PO SCH (08:09)
[2023-01-02] MEDS: metroNIDAZOLE 500 MG TAB PO SCH (08:09)
[2023-01-02] MEDS: ATORVASTATIN 20 MG TAB PO SCH (08:09)
[2023-01-02] MEDS: CEFEPIME 2 GM in SODIUM CHLORIDE 0.9% 100 ML IVPB SCH (08:09)
[2023-01-02] MEDS: METOPROLOL SUCCINATE (ER) 100 MG TAB.ER.24H PO SCH (08:10)
[2023-01-02] MEDS: DILTIAZEM CD 120 MG CAP.ER.24H PO SCH (08:10)
[2023-01-02] MEDS: OXYBUTYNIN 10 MG TAB.ER.24 PO SCH (08:10)
[2023-01-02] MEDS: NYSTATIN 100,000 UNIT/GM OINT 30 GM TUBE TOPICAL SCH (08:10)
[2023-01-02] MEDS: LINAGLIPTIN 5 MG TABLET PO SCH (08:10)
[2023-01-02] MEDS: TRIAMCINOLONE ACET 0.1% OINTMENT 15 GM TUBE TOPICAL SCH (08:10)
[2023-01-02] MEDS ORDERED: VANCOMYCIN TROUGH DUE 1 EACH MISC MISCELLANE ONE (11:00)
[2023-01-02 11:01] LABS: Basophils # (A) 0.11 X 10*3/uL (0.00-0.10); Eosinophils # (A) 0.41 X 10*3/uL (0.04-0.35); Eosinophils % (A) 3.8 %; HCT 34.1 % (37.2-46.3); HGB 10.7 g/dL (12.0-15.0); Lymphocytes # (A) 1.67 X 10*3/uL (0.90-5.00); Lymphocytes % (A) 15.5 %; MCH 30.3 pg (27.0-32.0); MCHC 31.4 g/dL (32.0-37.0); MCV 96.6 FL (80.0-97.0); Mean Platelet Volume 9.6 FL (9.5-12.2); Monocytes # (A) 1.16 X 10*3/uL (0.20-1.00); Monocytes % (A) 10.8 %; NRBC Per 100 WBC 0 X 10*3/uL (0.00-0.01); Neutrophils # (A) 7.33 X 10*3/uL (1.80-7.70); Neutrophils % (A) 68.2 %; Platelet Count 345 X 10*3/uL (140-440); RBC 3.53 X 10*6/uL (4.10-5.20); RDW 13.3 % (11.5-14.5); WBC 10.76 X 10*3/uL (4.50-10.00)
--- NOTE | 2023-01-02 11:02 | P.DS ---
Providers Date of admission: 12/25/22 01:39 EST Expected date of discharge: 01/02/23 Attending physician: Jean-Pierre Alves Consults: 12/25/22 01:39 Consult Physician Routine Consulting Provider: Lonnie Carter Consult Reason/Comments: wound Do you want consulting provider notified?: Yes 12/25/22 10:46 Consult Physician Routine Consulting Provider: Aleksey Arteaga Consult Reason/Comments: Infected decubitus ulcer Do you want consulting provider notified?: Yes Primary care physician: Penelope Chen MD Hospital Course: Final diagnosis -Infected sacral decubitus ulcer patient did have fever may have sepsis, status post sugical debridement of wound continues on IV Cefepime and IV vancomycin with ID and vascular consultation. -Intertrigo in the groin folds -Tachycardia secondary to sepsis and hypotension secondary to sepsis, improving -Atrial fibrillation history patient is in chronic A. fib anticoaguated with warfarin. -Type 2 diabetes mellitus -Hyperlipidemia -Hypertension -History of diabetic neuropathy -History of overactive bladder -Anxiety -Former Smoker Discharge disposition Patient is being discharged in a stable condition with guarded prognosis to [facility]. Patient will follow-up with Dr. Chen in the outpatient setting upon discharge. Patient is to continue with hemodialysis as scheduled. Total time taken is greater than 35 minutes. Hospital course This is a 62-year-old female who was recently admitted with infected decubitus ulcer stage II to the right thigh and sacrum being closely monitored with wound care along with infectious disease. Cultures showing enterococcus group D with acinetobacter and gram-positive bacilli and infectious disease following recommend to receive PICC line and continue with IV antibiotics for 3 weeks along with oral antibiotics. Patient is continued on cefepime and Vanco along with Flagyl and will continue for a three-week course. Patient to continue with local wound care as mentioned below and medications as prescribed. Patient does take Coumadin for atrial fibrillation and current INR is 1.9 and will be receiving a dose of warfarin 7.5 today and recommend follow-up INR with pharmacy to dose. Patient will also need follow-up labs including CK, CBC, CRP, CMP along with INR to monitor Coumadin levels closely. Patient has been medically cleared by consultation. Please refer to consultation notes for further HPI. Patient with significant weakness will be going to [facility] for IV antibiotic therapy as well as physical therapy. Currently no reports of chest pain, shortness of breath, or palpitations. Patient is afebrile. No reports of nausea or vomiting and patient is tolerating diet. Patient will be going to [facility] today. Guarded prognosis Physical exam: Gen: This is a 62-year-old female who is awake, alert and oriented 3, well- developed, well-nourished, morbidly obese HEENT: Head is atraumatic, normocephalic. Pupils equal, round. Sclerae is anicteric. NECK: Supple. No JVD. No lymphadenopathy. No thyromegaly. LUNGS: Diminished breath sounds bilaterally with no wheezes or rhonchi. No intercostal retractions. HEART: S1, S2 are muffled ABDOMEN: Soft. Obese Bowel sounds are present. No masses. No tenderness. EXTREMITIES: No pedal edema. No calf tenderness. NEUROLOGICAL: Patient is awake, alert and oriented x3. Cranial nerves 2 through 12 are grossly intact. Diffusely weak Please refer to medication reconciliation sheet for a list of medications. The impression and plan of care has been dictated by Erin Cantu, Nurse Practitioner as directed. Dr. Long MD I have performed a history and examination and MDM of this patient, discussed the same with the dictator, and agree with the dictator's assessment and plan as written ,documented as a scribe. Based on total visit time, I have performed more than 50% of the visit. Patient Condition at Discharge: Good Plan - Discharge Summary Discharge Rx Participant: No New Discharge Prescriptions: New Nystatin 100,000 Unit/gm Oint [Mycostatin Oint] 1 applic TOPICAL BID each INSULIN ASPART (NovoLOG) [NovoLOG (formulary)] 0 unit SQ ACHS each traMADol HCl [Ultram] 50 mg PO Q6H PRN #4 tab PRN Reason: Pain Control metroNIDAZOLE [Flagyl] 500 mg PO TID 21 Days #63 tab Cefepime [Maxipime] 2 gm IVPB Q8HR 21 Days #63 each Vancomycin 2,250 mg IVPB Q12H 21 Days #42 each Oxybutynin ER [Ditropan XL] 10 mg PO DAILY tab Triamcinolone 0.1% Ointment [Kenalog 0.1% Ointment] 1 applic TOPICAL BID each HYDROcodone/APAP 5-325MG [[place] 5-325] 1 each PO Q6HR PRN #4 tab PRN Reason: Pain Pantoprazole [Protonix] 40 mg PO AC-BRKFST tab Continue Gabapentin [Neurontin] 400 mg PO DAILY Warfarin [Coumadin] 5 mg PO DAILY Mirabegron [Myrbetriq] 50 mg PO DAILY sitaGLIPtin [Januvia] 100 mg PO DAILY dilTIAZem HCL [Cardizem CD] 120 mg PO DAILY Diphenoxylate HCl/Atropine [Lomotil 2.5-0.025 mg Tablet] 1 tab PO QID PRN PRN Reason: Diarrhea Acetaminophen [Tylenol Arthritis] 1,300 mg PO Q8H PRN PRN Reason: Fever And/ Or Pain Nitroglycerin Sl Tabs [Nitrostat] 0.4 mg SUBLINGUAL Q5M PRN PRN Reason: Chest Pain Metoprolol Succinate (ER) [Toprol XL] 200 mg PO DAILY glipiZIDE [Glucotrol] 15 mg PO BID Lidocaine 5% Patch [Lidoderm 5% Patch] 1 patch TOPICAL DAILY PRN PRN Reason: Pain Fluticasone Nasal Kinde [Flonase Nasal Kinde] 2 spray EA NOSTRIL DAILY PRN PRN Reason: Allergy Symptoms Atorvastatin [Lipitor] 20 mg PO DAILY Gabapentin [Neurontin] 800 mg PO HS #4 cap Discontinued lisinopriL [Zestril] 2.5 mg PO DAILY Potassium Chloride ER [K-Dur 20] 20 meq PO DAILY Cholestyramine (with Sugar) [Questran Powder] 2 gm PO DAILY Discharge Medication List Acetaminophen [Tylenol Arthritis] 1,300 mg PO Q8H PRN 12/25/22 [History] Atorvastatin [Lipitor] 20 mg PO DAILY 12/25/22 [History] Diphenoxylate HCl/Atropine [Lomotil 2.5-0.025 mg Tablet] 1 tab PO QID PRN 12/25/22 [History] Fluticasone Nasal Kinde [Flonase Nasal Kinde] 2 spray EA NOSTRIL DAILY PRN 12/25/22 [History] Gabapentin [Neurontin] 400 mg PO DAILY 12/25/22 [History] Lidocaine 5% Patch [Lidoderm 5% Patch] 1 patch TOPICAL DAILY PRN 12/25/22 [History] Metoprolol Succinate (ER) [Toprol XL] 200 mg PO DAILY 12/25/22 [History] Mirabegron [Myrbetriq] 50 mg PO DAILY 12/25/22 [History] Nitroglycerin Sl Tabs [Nitrostat] 0.4 mg SUBLINGUAL Q5M PRN 12/25/22 [History] Warfarin [Coumadin] 5 mg PO DAILY 12/25/22 [History] dilTIAZem HCL [Cardizem CD] 120 mg PO DAILY 12/25/22 [History] glipiZIDE [Glucotrol] 15 mg PO BID 12/25/22 [History] sitaGLIPtin [Januvia] 100 mg PO DAILY 12/25/22 [History] Cefepime [Maxipime] 2 gm IVPB Q8HR 21 Days #63 each 01/02/23 [Rx] Gabapentin [Neurontin] 800 mg PO HS #4 cap 01/02/23 [Rx] HYDROcodone/APAP 5-325MG [[place] 5-325] 1 each PO Q6HR PRN #4 tab 01/02/23 [Rx] INSULIN ASPART (NovoLOG) [NovoLOG (formulary)] 0 unit SQ ACHS each 01/02/23 [Rx] Nystatin 100,000 Unit/gm Oint [Mycostatin Oint] 1 applic TOPICAL BID each 01/02/23 [Rx] Oxybutynin ER [Ditropan XL] 10 mg PO DAILY tab 01/02/23 [Rx] Pantoprazole [Protonix] 40 mg PO AC-BRKFST tab 01/02/23 [Rx] Triamcinolone 0.1% Ointment [Kenalog 0.1% Ointment] 1 applic TOPICAL BID each 01/02/23 [Rx] Vancomycin 2,250 mg IVPB Q12H 21 Days #42 each 01/02/23 [Rx] metroNIDAZOLE [Flagyl] 500 mg PO TID 21 Days #63 tab 01/02/23 [Rx] traMADol HCl [Ultram] 50 mg PO Q6H PRN #4 tab 01/02/23 [Rx] Follow up Appointment(s)/Referral(s): Penelope Chen MD [Primary Care Provider] - 1-2 days Activity/Diet/Wound Care/Special Instructions: Patient will be going to [facility] Activity as tolerated Patient continue with IV antibiotics as prescribed per ID recommendations. Vancomycin with pharmacy to dose every 12 hours for 3 weeks, cefepime every 8 hours for 3 weeks, oral Flagyl 3 times a day for 3 weeks Repeat labs of CBC, CRP, CK, CMP in 2-3 days as well as Vanco troughs per ID recommendations Continue monitoring INR closely as patient is on Coumadin and pharmacy to dose Continue diabetic diet Continue monitoring Accu-Cheks before meals and at bedtime NovoLog sliding scale 0-150 equals 0 units 151-200 equals 2 units 201-250 equals 4 units 251-300 equals 6 units 301-350 equals 8 units 351-400 equals 10 units Please notify provider if blood sugar is 400 or above Patient is to continue with wound care to the coccyx/sacrum by applying Medihoney and gauze over with bordered foam and change every 2 days or if becomes soiled Follow-up with infectious disease and wound care outpatient Follow-up primary care provider on discharge Discharge Disposition: TRANSFER TO SNF/ECF
[2023-01-02 11:12] LABS: Calcium 8.6 mg/dL (8.7-10.3); Carbon Dioxide 29.6 mmol/L (21.6-31.8); Chloride 100 mmol/L (96-109); Glucose 148 mg/dL (70-110); Potassium 4.6 mmol/L (3.5-5.5); Sodium 137 mmol/L (135-145)
[2023-01-02 12:13] LABS: Glucose,Whole Blood 164 mg/dL (70-110)
[2023-01-02] MEDS: VANCOMYCIN 2,250 MG in SODIUM CHLORIDE 0.9% 500 ML 500 ML IVPB SCH (12:20)
[2023-01-02 12:43] VITALS: BP 95/58; TEMP 98.3
--- NOTE | 2023-01-02 12:44 | P.PN ---
Subjective Progress Note Date: 01/02/23 Principal diagnosis: Infected sacral pressure ulcer Patient is a 62-year-old female with a past medical history significant for diabetes mellitus hypertension hyperlipidemia atrial fibrillation patient apparently has been sent to the ER for evaluation of worsening wound to the sacral area, patient did have a low-grade fever 100.4 and did have debridement of the wound by surgery and cultures are pending. On today's evaluation that is 01/02/2023, the patient continues to be afebrile , the patient is not requiring any supplemental oxygen and is breathing comfortably on room air , the patient denies any chest pain no cough or sputum production, patient denies Abdominal pain and denies any nausea/vomiting/no diarrhea has been reported, patient denies any worsening pain to the sacral area White count is 10.76, creatinine 0.4, local culture growing group D enterococcus as well as anaerobes and Acinetobacter Objective - Vital Signs Vital signs: Vital Signs Temp 98.3 F 01/02/23 12:10 Pulse 84 01/02/23 12:10 Resp 18 01/02/23 12:10 BP 95/58 01/02/23 12:10 Pulse Ox 93 L 01/02/23 12:10 FiO2 Intake & Output 01/01/23 01/02/23 01/02/23 18:59 06:59 18:59 Output Total 350 1775 1000 Balance -350 -1775 -1000 Output: Urine 350 1775 1000 Other: Voiding Method Indwelling Catheter Indwelling Catheter Indwelling Catheter - Exam GENERAL DESCRIPTION: A middle-aged female lying in bed in no distress RESPIRATORY SYSTEM: Unlabored breathing , clear to auscultation anteriorly HEART: S1 S2 regular rate and rhythm , ABDOMEN: Soft , no tenderness Sacral pressure ulcer stage III is currently dressed EXTREMITIES: No edema feet - Labs CBC & Chem 7: 01/02/23 06:26 01/02/23 06:26 Labs: Abnormal Lab Results - Last 24 Hours (Table) 01/01/23 01/01/23 01/01/23 Range/Units 04:28 17:04 21:24 WBC 10.19 H (4.50-10.00) X 10*3/uL RBC 3.55 L (4.10-5.20) X 10*6/uL Hgb 10.7 L (12.0-15.0) g/dL Hct 34.9 L (37.2-46.3) % MCV 98.3 H (80.0-97.0) FL MCHC 30.7 L (32.0-37.0) g/dL Monocytes # 1.03 H (0.20-1.00) X 10*3/uL Eosinophils # 0.64 H (0.04-0.35) X 10*3/uL Basophils # (0.00-0.10) X 10*3/uL PT (10.0-12.5) sec INR (<1.2) Creatinine (0.6-1.5) mg/dL BUN/Creatinine Ratio (12.00-20.00) Ratio Glucose (70-110) mg/dL POC Glucose (mg/dL) 218 H 167 H (70-110) mg/dL Calcium (8.7-10.3) mg/dL 01/02/23 01/02/23 01/02/23 Range/Units 06:26 06:26 06:26 WBC 10.76 H (4.50-10.00) X 10*3/uL RBC 3.53 L (4.10-5.20) X 10*6/uL Hgb 10.7 L (12.0-15.0) g/dL Hct 34.1 L (37.2-46.3) % MCV (80.0-97.0) FL MCHC 31.4 L (32.0-37.0) g/dL Monocytes # 1.16 H (0.20-1.00) X 10*3/uL Eosinophils # 0.41 H (0.04-0.35) X 10*3/uL Basophils # 0.11 H (0.00-0.10) X 10*3/uL PT 19.1 H (10.0-12.5) sec INR 1.9 H (<1.2) Creatinine 0.4 L (0.6-1.5) mg/dL BUN/Creatinine Ratio 27.50 H (12.00-20.00) Ratio Glucose 148 H (70-110) mg/dL POC Glucose (mg/dL) (70-110) mg/dL Calcium 8.6 L (8.7-10.3) mg/dL 01/02/23 01/02/23 Range/Units 07:06 12:12 WBC (4.50-10.00) X 10*3/uL RBC (4.10-5.20) X 10*6/uL Hgb (12.0-15.0) g/dL Hct (37.2-46.3) % MCV (80.0-97.0) FL MCHC (32.0-37.0) g/dL Monocytes # (0.20-1.00) X 10*3/uL Eosinophils # (0.04-0.35) X 10*3/uL Basophils # (0.00-0.10) X 10*3/uL PT (10.0-12.5) sec INR (<1.2) Creatinine (0.6-1.5) mg/dL BUN/Creatinine Ratio (12.00-20.00) Ratio Glucose (70-110) mg/dL POC Glucose (mg/dL) 155 H 164 H (70-110) mg/dL Calcium (8.7-10.3) mg/dL Assessment and Plan (1) Infection Current Visit: Yes Status: Acute Code(s): B99.9 - UNSPECIFIED INFECTIOUS DISEASE SNOMED Code(s): 64256428 (2) Sacral decubitus ulcer Current Visit: Yes Status: Acute Code(s): L89.159 - PRESSURE ULCER OF SACRAL REGION, UNSPECIFIED STAGE SNOMED Code(s): 041063364 Plan: 1patient presented to hospital with a worsening wound to the sacral area and this patient who is status post surgical debridement and deep cultures which are currently pending bone was not palpable at the wound base, we will need to cover for gram-positive as well as gram-negative pathogen 2-penicillin allergy with a rash a few years ago that will limit the number of antibiotics safe to use 3-patient local cultures are currently growing group D enterococcus and Acinet obacter and anaerobic gram-positive bacilli 4- Because of her penicillin ALLERGY patient is on cefepime , vancomycin and Flagyl which will be continued for another 3 weeks on discharge and close patie nt follow-up, local wound care to continue per the wound care physician Dictation was produced using [employer] dictation software. please excuse any grammatical, word or spelling errors. Time with Patient: Less than 30
[2023-01-02] MEDS ORDERED: WARFARIN 7.5 MG TAB PO ONE (18:00)
== END 2023-01-02 16:05 | DRG 853 ==
LOC: EC 23:10 → 4SSUR 12-25 01:39 → 3SCARD 12-25 16:52 → 5NMEDONC 12-31 14:00
PROVIDERS: ADMIT Hospitalist; ATTEND Hospitalist
PROC: 0JB70ZZ Excision of Back Subcutaneous Tissue and Fascia, Open Approach (ICD-10-PCS; principal; 2022-12-26)
PROC: 02HV33Z Insertion of Infusion Device into Superior Vena Cava, Percutaneous Approach (ICD-10-PCS; 2022-12-29)
PROC: B5181ZA Fluoroscopy of Superior Vena Cava using Low Osmolar Contrast, Guidance (ICD-10-PCS; 2022-12-29)
PROC: B548ZZA Ultrasonography of Superior Vena Cava, Guidance (ICD-10-PCS; 2022-12-29)
DX: A41.81 Sepsis due to Enterococcus (principal); L89.154 Pressure ulcer of sacral region, stage 4; L89.894 Pressure ulcer of other site, stage 4; I48.20 Chronic atrial fibrillation, unspecified; Z68.42 Body mass index [BMI] 45.0-49.9, adult; L03.90 Cellulitis, unspecified; E78.5 Hyperlipidemia, unspecified; E11.42 Type 2 diabetes mellitus with diabetic polyneuropathy; I10 Essential (primary) hypertension; L30.4 Erythema intertrigo; E11.9 Type 2 diabetes mellitus without complications; Z87.891 Personal history of nicotine dependence; Z74.01 Bed confinement status; E66.9 Obesity, unspecified; F41.9 Anxiety disorder, unspecified; F32.81 Premenstrual dysphoric disorder; Z79.2 Long term (current) use of antibiotics; Z79.4 Long term (current) use of insulin; Z79.01 Long term (current) use of anticoagulants; N32.81 Overactive bladder; Z79.84 Long term (current) use of oral hypoglycemic drugs; Z79.899 Other long term (current) drug therapy; Z88.0 Allergy status to penicillin; Z88.5 Allergy status to narcotic agent
CPT/HCPCS: 36573; 51702; 80048; 80053; 80202; 82565; 83735; 84100; 85025; 85610; 87070; 87077; 87186; 87205; 93005; 99285